=== PATIENT | female | born 1970 | race Caucasian/White ===

== ENCOUNTER → 2016-10-23 | Outpatient (CLI) | payer OTHER ==
[~2016-10-23] MED LIST: [UNRECOGNIZED DRUG - OTHER] OPB
== END | disposition home or self-care (01) ==
LOC: C.PAPS 16:57
PROVIDERS: ATTEND Obstetrics & Gynecology
DX: Z01.419 Encounter for gynecological examination (general) (routine) without abnormal findings (principal)

== ENCOUNTER → 2016-12-12 | Outpatient (CLI) | payer OTHER ==
--- NOTE | 2016-12-13 13:11 | MAMMOGRAPHY REPORT ---
ULTRASOUND OF BOTH BREASTS: 12/12/2016 CLINICAL HISTORY: Follow-up of probable complicated cysts in both breasts seen on prior whole breast screening ultrasound. COMPARISON: Comparison is made to exams dated: 06/13/2016 ultrasound, 05/26/2016 mammogram - [facility], 11/11/2014 mammogram, 09/19/2013 mammogram, 02/04/2013 mammogram, and 07/17/2012 mamm ogram - [facility]. FINDINGS: Real-time high-resolution sonographic evaluation was performed throughout each breast incl uding the retroareolar aspect of the breasts and each axilla. No suspicious adenopathy is identified in the right or left axilla. The breast parenchymal echotexture is heterogeneousdense. Within the left breast, numerous scattered cysts and cyst with internal septations are seen. An oval parallel circumscribed anechoic cyst with posterior acoustic enhancement is seen in the 12:00 left b reast, 2 cm from the nipple, measuring 7.0 x 5.3 x 5.8 mm. The previously observed hypoechoic solid versus cystic 6 mm mass in the 12:00 left breast is no longer identified, confirming a resolving cyst . 2 smaller hypoechoic cystic-appearing masses are seen in the 12:00 left breast, 1 cm from the nipp le, measuring 2.8 and 2.0 mm. A lobulated clover-shaped cyst with internal nonvascular septations pr eviously documented in the 12:00 periareolar left breast is currently reported in the 11:[address], 1 cm from the nipple. It currently measures 12.3 x 5.9 x 14.2 mm. Previous measurements were 14 .0 x 4.1 x 11.5 mm. Given slight differences in technique this has not significantly changed. 2 [address] circumscribed masses with posterior acoustic enhancement and internal layering debris are seen in the 1:30 left breast, 8 cm from the nipple, measuring 3.2 and 4.0 mm. In the 2:00 left breast, 8 cm from the nipple, there is a lobulated parallel predominantly anechoic to hypoechoic cystic-appearing mass measuring 4.5 x 2.2 x 2.9 mm. In the 2:00 left breast, 7 cm from the nipple, there is a cluster of small cysts versus cyst with multiple internal nonvascular septations measuring 5.0 x 5.0 x 5.5 m m. Minimal duct ectasia in the retroareolar left breast. Another cyst with multiple internal nonvas cular septation versus cyst cluster is identified in the 3:00 left breast, 6 cm from the nipple, jayda uring 5.2 x 2.8 x 4.3 mm. In the 6:00 periareolar left breast, there is an oval anechoic benign simp le cyst measuring 4.0 mm. In the 7:00 left breast, 2 cm from the nipple, there is an oval parallel c ircumscribed slightly hypoechoic solid versus cystic mass measuring 3.1 x 1.9 x 3.4 mm. A cyst with thin internal nonvascular septations is identified in the 9:00 left breast, 1 cm from the nipple, abigail suring 6.6 mm. Another nearly anechoic cystic appearing mass is seen in the 10:00 left breast, 3 cm from the nipple, measuring 3.9 x 3.5 x 4.0 mm. The mildly complicated cyst with internal septations in the 3:00 and 9:00 axes are unchanged in size. The solid versus cystic mass in the 7:00 axis is ne wly visualized. Within the right 12:00 breast, 6 cm from the nipple, there is a circumscribed parallel lobulated hypo echoic solid versus cystic mass measuring 5.7 x 3.9 x 5.8 mm. A round anechoic benign simple cyst is identified in the 12:00 right breast, 3 cm from the nipple, measuring 3.5 mm. There is an oval para llel circumscribed isoechoic to slightly hypoechoic solid versus cystic mass in the 1:00 right breast , 2 cm from the nipple, measuring 3.8 x 2.1 x 3.4 mm. A lobulated, predominantly anechoic cystic german earing mass with several thin internal nonvascular septations in the right 2:00 breast, 2 cm from the nipple, measures 4.6 x 2.7 x 4.3 mm. Another predominantly anechoic cyst with multiple internal non vascular septations in the 3:00 right breast, 4 cm from the nipple, measures 6.9 x 3.6 x 6.1 mm. A t iny rounded anechoic cyst is seen in the 7:00 right breast, 7 cm from the nipple, measuring 1.5 mm. A cyst with single thin internal nonvascular septation in the 7:00 right breast, 4 cm from the nipple , measures 4.1 x 2.6 x 6.9 mm. In the adjacent 7:00 right breast, 3 cm from the nipple, another cyst with single thin internal nonvascular septation measures 3.2 mm. Another lobulated anechoic benign simple cyst in the 9:00 right breast, 4 cm from the nipple, measures 4.6 x 6.2 mm. A cluster of mult iple abutting cysts in the 9:00 right breast, 3 cm from the nipple measures approximately 13 x 5 mm i n conglomerate. The mass in the 12:00 right breast, 6 cm from the nipple was not previously identifi ed. A previously observed probable complicated cyst in the 5:00 right breast is no longer seen. The cyst with thin internal septations currently seen in the 7:00 and 9:00 right breast were previously labeled 8:00 and 10:00, respectively and are unchanged. IMPRESSION: ACR-BI-RADS CATEGORY 3: PROBABLY BENIGN - FOLLOW-UP RECOMMENDED 1. There are multiple anechoic cysts scattered bilaterally, compatible with fibrocystic changes. So me of the cystic-appearing masses in both breasts have fluctuated and decreased in size, confirming b enignity. Multiple cysts with thin internal nonvascular septations in both breasts have not signific antly changed in size, also likely benign. However, there are newly visualized masses in the left 7: 00 axis, 2 cm from the nipple, and the right 12:00 axis, 6 cm from the nipple, for which repeat atten tion at follow-up is recommended. 2. Overall, a follow-up bilateral complete breast ultrasound is recommended to ensure longer stabili ty (30 minutes). Annual bilateral screening mammography will be due at that time. These results and recommendations were discussed with the patient at the time of the exam. She tenta tively schedule the follow-up appointment prior to leaving the department. Vernell Steven M.D. ay/:12/12/2016 22:30:34 Cardiovascular Operating Room Nurse: Kelli BEAN(Norma)(Joanna), [facility] letter sent: Follow Up Recommended 3 BI-RADS Code: ACR-BI-RADS Category 3: Probably Benign
== END | disposition home or self-care (01) ==
LOC: C.MAMM 08:01
PROVIDERS: ATTEND Family Medicine
DX: Z09 Encounter for follow-up examination after completed treatment for conditions other than malignant neoplasm (principal); N63 Unspecified lump in breast; N60.01 Solitary cyst of right breast; N60.02 Solitary cyst of left breast

== ENCOUNTER → 2017-06-14 | Outpatient (CLI) | payer OTHER ==
--- NOTE | 2017-06-15 13:38 | MAMMOGRAPHY REPORT ---
BILATERAL DIGITAL DIAGNOSTIC MAMMOGRAM TOMOSYNTHESIS WITH CAD AND TARGETED BILATERAL ULTRASOUND: 06/14 CLINICAL HISTORY: Short interval follow-up of bilateral cysts seen on whole breast ultrasound. Also due for routine annual mammography. The patient reports no new palpable lumps or other complaints. TECHNIQUE: Breast tomosynthesis in addition to standard 2D mammography was performed. Current study was also evaluated with a Computer Aided Detection (CAD) system. Bilateral CC and MLO 2-D and tomosy nthesis images and spot magnification left CC and ML views were obtained. COMPARISON: Comparison is made to exams dated: 12/12/2016 ultrasound, 06/13/2016 ultrasound, 05/26/2016 mammogram - [facility], 11/11/2014 mammogram, 09/19/2013 mammogram, and 02/04/2013 [facility]. BREAST COMPOSITION: The tissue of both breasts is heterogeneously dense, which may obscure small mas ses. FINDINGS: Spot magnification views were performed of the left breast, which show regional calcificat ions throughout the left upper outer quadrant which appear increased compared to prior exams. The ma jority of the calcifications demonstrate layering on the lateral view, consistent with benign milk of calcium. There is one small 5 mm group of calcifications within the left upper outer quadrant, whic h are predominantly punctate but do not clearly layer on the lateral view. The calcifications are p robably benign and likely represent milk of calcium/fibrocystic changes. The remainder of both breasts are stable mammographically compared to prior exams, without suspicious masses, calcifications, or areas of architectural distortion noted. Biopsy marker clips are again n oted bilaterally. Bilateral predominantly obscured masses are again noted, and correspond with cysts seen on prior ultrasound exams. Ultrasound was performed of both breasts including all 4 quadrants and subareolar regions. Again not ed are innumerable circumscribed anechoic and nearly anechoic masses seen bilaterally, some of which contain thin internal septations, consistent with cysts. The largest cyst measures approximately 1.6 cm in the left 11:30 periareolar breast. No suspicious solid masses are evident bilaterally. IMPRESSION: ACR-BI-RADS CATEGORY 3: PROBABLY BENIGN, TARGETED ULTRASOUND ACR-BI-RADS CATEGORY 3: PRO BABLY BENIGN 1. Increased prominence of calcifications in the left upper outer quadrant, which are probably benig n and likely represent milk of calcium/fibrocystic changes. Recommend follow-up diagnostic tomosynth esis mammograms of the left breast in 6 months to confirm stability on spot magnification views. 2. Multiple cysts seen bilaterally on ultrasound, with no sonographic evidence of malignancy in eith er breast. The patient has been verbally notified of the results. Approximately 10% of breast cancers are not detected with mammography. A negative mammographic report should not delay biopsy if a clinically suggestive mass is present. Cleo Hairston M.D. ah/:06/14/2017 16:00:51 Baker Apprentice: Annalise Wilder, [facility] letter sent: Follow Up Recommended 3 BI-RADS Code: ACR-BI-RADS Category 3: Probably Benign Ultrasound BI-RADS: ACR-BI-RADS Category 3: Pr obably Benign
== END | disposition home or self-care (01) ==
LOC: C.MAMM 07:55
PROVIDERS: ATTEND Obstetrics & Gynecology
DX: R92.1 Mammographic calcification found on diagnostic imaging of breast (principal); N60.01 Solitary cyst of right breast; N60.02 Solitary cyst of left breast

== ENCOUNTER → 2017-11-12 | Outpatient (CLI) | payer OTHER | END | disposition home or self-care (01) | LOC: C.PAPS 14:17 | PROVIDERS: ATTEND Obstetrics & Gynecology | DX: Z12.4 Encounter for screening for malignant neoplasm of cervix (principal) ==

== ENCOUNTER → 2018-02-18 | Outpatient (CLI) | payer OTHER | END | disposition home or self-care (01) | LOC: C.LABSPEC 17:34 | PROVIDERS: ATTEND Obstetrics & Gynecology | DX: R30.0 Dysuria (principal) ==

== ENCOUNTER 2019-11-24 06:25 | Inpatient (IN) ==
--- NOTE | 2019-11-13 09:26 | Anesthesiology Consultation ---
Date of Service November 13, 2019 Assessment & Plan (1) Encounter for pre-operative examination: test AM DOS Chart Review Chart Review: Acceptable Risk for Surgery and Patient NOT seen in Pre Admission Testing History Surgery Operation Date: 11/24/19 07:30 Proposed Procedures p Total Abdominal Hysterectomy, Possible Removal of One or Both Ovaries - Chantal Castillo, Height/Weight Height: 5 ft 9 in Weight: 77.111 kg Allergies Allergy/AdvReac Type Severity Reaction Status Date / Time iodine Allergy Severe Swelling Verified 11/12/19 10:44 of Tongue, difficult swallowing kiwi Allergy Severe throat Verified 11/12/19 10:44 itching/throat swelling shellfish derived Allergy Severe throat Verified 11/12/19 10:44 itching/throat swelling Medications Home Medications Medication Instructions Recorded Confirmed Last Taken azelastine 137 mcg (0.1 %) nasal 2 sprays INTNAS QAM PRN 01/06/19 11/12/19 Unknown spray aerosol latanoprost 0.005 % eye drops 1 drops OP QPM 01/06/19 11/12/19 08/30/19 multivitamin 1 tab PO QAM 08/26/19 11/12/19 Unknown Past Medical History Medical History Anemia Glaucoma Herniated cervical disc Menorrhagia Osteoarthritis Past Family History Family History Aunt Family hx of colon cancer Grandfather Hearing loss Cardiac disorder Grandmother Stroke Uncle Family hx colonic polyps Other No family history of adverse response to anesthesia Past Surgical History Surgical History H/O myomectomy H/O ovarian cystectomy History of colonoscopy with polypectomy History of left breast biopsy x2--benign History of right breast biopsy x2--benign History of wisdom tooth extraction Social History Smoking Status: Never smoker Do You Dip or Chew Tobacco: No Hx Alcohol Use: Yes Alcohol type: hard liquor alcohol intake frequency: holidays/special occasions only Hx Substance Use: No substance use type: does not use Testing Laboratory Results 11/12/19 WBC: 5.18 H/H: 13.1/39.7 PLATELETS: 274 SODIUM: 132 POTASSIUM: 3.9 CHLORIDE: 101 CO2: 28 BUN: 2 CREATININE: 0.81 GLUCOSE: 95 Electrocardiogram Date: 11/12/19 Findings: + SB @ (58bpm) Chest X-Ray Date: 11/12/19 Findings: + NAD
[~2019-11-24 06:25] MED LIST changes: +CEFAZOLIN 2000MG 2,000 MG/15 ML SYR IV SCH; +LACTATED RINGER'S 1,000 ML IV SCH; +LR 15ML/HR IV SCH; -[UNRECOGNIZED DRUG - OTHER] OPB
[2019-11-24 07:56] LABS: Pregnancy Test, Serum Negative (Negative)
[2019-11-24] MEDS ORDERED: MIDAZOLAM HCL 1 MG/ML 2ML VIAL ONE (08:02)
[2019-11-24] MEDS ORDERED: ROCURONIUM BROMIDE 10 MG/ML 5 ML VIAL ONE (08:02)
[2019-11-24] MEDS ORDERED: LIDOCAINE HCL 2% 2 ML VIAL/AMP(20MG/ML) INFIL ONE (08:02)
[2019-11-24] MEDS ORDERED: PROPOFOL IV EMULSION 10 MG/ML 20 ML VIAL IV ONE (08:02)
[2019-11-24] MEDS ORDERED: ONDANSETRON INJ 2 MG/ML 2 ML VIAL ONE (08:02)
[2019-11-24] MEDS ORDERED: fentaNYL citrate 100 MCG/2 ML VIAL ONE ×2 (08:02→10:23)
[2019-11-24] MEDS ORDERED: PROMETHAZINE HCL 12.5 MG in SODIUM CHLORIDE 0.9% 50 ML IV PRN (08:15)
[2019-11-24] MEDS ORDERED: ATROPINE SULFATE 0.1 MG/ML 10ML SYR IV PRN (08:15)
[2019-11-24] MEDS ORDERED: ePHEDrine sulfate 50 MG/ML AMP IV PRN (08:15)
[2019-11-24] MEDS ORDERED: ONDANSETRON INJ 2 MG/ML 2 ML VIAL IV PRN (08:15)
[2019-11-24] MEDS ORDERED: HYDROmorphone INJ 1 MG/ML SYRINGE IV PRN (08:15)
--- NOTE | 2019-11-24 09:30 | History & Physical Bridge Note ---
Date of Service November 24, 2019 History & Physical Bridge Note I have examined the patient, reviewed the History & Physical and in the interval since the performance of the History & Physical I have noted the following changes of clinical significance: no changes noted
[2019-11-24] MEDS ORDERED: DEXAMETHASONE SOD INJ 4 MG/ML VIAL ONE (10:11)
[2019-11-24] MEDS ORDERED: GELATIN SPONGE SZ 100 ONE (11:42)
[2019-11-24] MEDS ORDERED: GLYCOPYRROLATE 0.2 MG/ML VIAL ONE (12:05)
[2019-11-24] MEDS ORDERED: NEOSTIGMINE METHYLSULFATE 5 MG/5 ML SYR ONE (12:05)
--- NOTE | 2019-11-24 12:19 | Operative Report ---
PG Post Operative Report Pre & Post Diagnosis Operation Date: 11/24/19 09:00 Pre-Op Diagnosis: Fibroid Uterus, Pelvic Pain, Abnormal Menses Post-Op Diagnosis: Fibroid Uterus, Pelvic Pain, Abnormal Menses I identified the patient and participated in the time-out.: Yes Procedure Operation Date: 11/24/19 09:00 Actual Procedures p Total Abdominal Hysterectomy, Left Salpingectomy, Right Oopherectomy(Not Applicable) - Chantal Castillo DO Surgeon Chantal Castillo DO Refractory Technician Tania Diggs MD, Rebeka Henry MD PGY1 Estimated Blood Loss 150 Findings Consistent with Post-Op Diagnosis Enlarged fibroid uterus, normal appearing bilateral ovaries/tubes. Specimens uterus, left tube, right ovary Drains maddox, clear yellow Anesthesia Type General Complications none Disposition Accompanied Patient To Recovery: Yes Disposition: Recovery Room Indications 49yo with worsening pelvic pain and large fibroid uterus, abnormal menses. Abdo osvaldo approach due to size of uterus. Description of Procedure The patient was seen in the preoperative holding area, where risks benefits and alternatives to surgery reviewed. She elected to proceed with the case. She had previously signed informed consent under no duress in the office. Questions were answered. She was taken to the operating room, where general anesthesia was administered. She was then prepared and draped in the usual sterile fashion in the supine position. Timeout was confirmed. 2 g of Ancef was given preoperatively. A Pfannenstiel skin incision was made through her prior incision with a scalpel. This was carried through to the underlying layer of fascia. This was nicked at midline, and extended bilaterally sharply. The superior aspect of the fascial incision was grasped with Winchester clamps x2, elevated off the underlying rectus abdominis muscles, and dissected bluntly and sharply. In similar fashion, the inferior aspect of the fascial incision was dissected. The rectus abdominis muscles were at midline, and the peritoneum was entered bluntly digitally. This incision was extended. A self-retaining O'Rich-O'Chung retractor was placed in the cavity, and one damp lap sponge was used to pack the bowel. The uterus was delivered through the incision, and the right round ligament was suture-ligated and transected. The anterior leaf of the broad ligament was dissected off of the anterior aspect of the uterus, and this came down nicely. The posterior broad leaf ligament was also dissected and the uterine vessels were skeletonized. The right utero- ovarian ligament was then grasped between 2 Candy clamps, and transected. A free tie was used of 0 Vicryl in the pedicle, and a second suture was used to suture ligate this pedicle. In similar fashion, the left round ligament and left utero-ovarian ligaments were transected and ligated. The left fallopian tube was transected from its mesosalpinx with Bovie cautery and sent to pathology. The bladder was dissected off of the anterior aspect of the uterus. Bilateral uterine vessels were clamped with a curved Melquiades and transected and suture ligated. Subsequent pedicles were taken down on each side until the cervix. A scalpel was used to enter the anterior aspect of the cervix, cutting through to the anterior vagina. The cervix and uterus were then amputated from the vaginal cuff using Joanne scissors. The vaginal cuff was then reapproximated in a running lock stitch with 1 Vicryl. The vaginal apices were incorporated into the suture line. The pedicles appeared hemostatic, however there was some bleeding at the right utero-ovarian ligament pedicle. This was unable to be adequately ligated to save the ovary. Therefore, decision was made to suture ligate the right infundibulopelvic ligament. This was tied off with a free tie, and then a second tie of 0 Vicryl was used to suture ligate. The ovary was sent to pathology. A portion of the right fallopian tube was taken down with the uterus, and could not be easily dissected from the right pelvic sidewall, so it was left alone in place. Bilateral ureters were palpated in the pelvic sidewall. All pedicles and the vaginal cuff appeared hemostatic after multiple rounds of irrigation. The self-retaining retractor retractor and lap sponges were removed from the pelvis. The fascial incision was reapproximated using 0 Vicryl in a running stitch. The subcutaneous tissue was irrigated and reapproximated using 2-0 plain gut in a running stitch. The skin was reapproximated using 4-0 Vicryl in a running subcuticular stitch. Steri-Strips and a bandage were applied. Sponge, instrument, needle counts were correct x2 at the conclusion of the case. The patient tolerated the procedure well and will be taken to the recovery area in stable and good condition after extubation. I attest to the content of the Intraoperative Record and any orders documented therein. Any exceptions are noted below.
[2019-11-24] MEDS ORDERED: bisacodyL 10 MG SUPP PR PRN (12:27)
[2019-11-24] MEDS ORDERED: PROMETHAZINE HCL 25 MG in SODIUM CHLORIDE 0.9% 50 ML IV PRN (12:27)
[2019-11-24] MEDS ORDERED: IBUPROFEN 600 MG TAB PO PRN (12:27)
[2019-11-24] MEDS ORDERED: MAGNESIUM HYDROXIDE SUSP 30 ML UDC PO PRN (12:27)
[2019-11-24] MEDS ORDERED: NALOXONE HCL 0.4 MG/1 ML VIAL/CARP IV PRN (12:27)
[2019-11-24] MEDS ORDERED: MoRPHine Bolus from PCA IV STA ×2 (12:27→14:44)
[2019-11-24] MEDS ORDERED: MORPHINE SULFATE PCA 30 MG/30 ML IV PRN (12:27)
[2019-11-24] MEDS ORDERED: SODIUM CHLORIDE 0.9% 1000ML 1,000 ML IV SCH (12:30)
[2019-11-24] MEDS: fentaNYL citrate 100 MCG/2 ML VIAL IV PRN ×2 (12:50→12:55)
--- NOTE | 2019-11-24 13:14 | Anesthesiology Progress Note ---
Date of Service November 24, 2019 Anesthesia Post Procedure Vital Signs Vital Signs: Temp Pulse Pulse Resp BP BP Pulse Ox 11/24/19 13:05 36.6 C 56 L 16 127/85 100 11/24/19 12:55 63 16 148/87 H 100 11/24/19 12:46 36.7 C 71 16 138/82 100 11/24/19 07:02 36.8 C 68 18 143/90 H 99 Pain Intensity Abdomen: Pain Intensity: 7 Transfer of Care Handoff Completed per policy Notes Mental Status: alert / awake / arousable and participated in evaluation Patient Amnestic to Procedure: Yes Nausea / Vomiting: adequately controlled Pain: improving with treatment Airway Patency, RR, SpO2: stable & adequate BP & HR: stable & adequate Hydration State: stable & adequate Anesthetic Complications: no major complications apparent and Pt Satisfied with anesthetic care
[2019-11-24] MEDS: KETOROLAC 30 MG/ML VIAL IV PRN ×2 (14:57→21:05)
[2019-11-24] MEDS: ONDANSETRON INJ 2 MG/ML 2 ML VIAL IV PRN (20:45)
[2019-11-24] MEDS: LACTATED RINGER'S 1,000 ML IV SCH (21:31)
[2019-11-24] MEDS: DOCUSATE SODIUM 100 MG CAP PO SCH (21:36)
[2019-11-25] MEDS: LACTATED RINGER'S 1,000 ML IV SCH ×2 (05:00→08:28)
[2019-11-25] MEDS ORDERED: LACTATED RINGER'S 500 ML IV ONE (05:42)
[2019-11-25] MEDS: ONDANSETRON INJ 2 MG/ML 2 ML VIAL IV PRN (05:49)
[2019-11-25 06:25] LABS: Basophils # (auto) 0.01 K/uL (0-0.2); Basophils % (auto) 0.1 %; Hematocrit (blood only) 25.9 % (37-47); Hemoglobin 8.5 g/dL (12.0-16.0); Immature Granulocytes # (auto) 0.02 K/uL (0.00-0.02); Immature Granulocytes % (auto) 0.2 %; Lymphocytes # (auto) 1.77 K/uL (1.2-3.4); Lymphocytes % (auto) 15.6 %; Mean Corpuscular Hemoglobin 30.1 pg (25-34); Mean Corpuscular Hgb Conc 32.8 g/dL (32-36); Mean Corpuscular Volume 91.8 fL (80-100); Mean Platelet Volume 10.7 fL (7.4-10.4); Monocytes # (auto) 1.36 K/uL (0.11-0.59); Neutrophils # (auto) 8.21 K/uL (1.4-6.5); Neutrophils % (auto) 72.1 %; Platelet Count 216 K/uL (130-400); RDW Coefficient of Variation 13.6 % (11.5-14.5); RDW Standard Deviation 45.3 fL (36.4-46.3); Red Blood Count 2.82 M/uL (4.2-5.4); White Blood Count 11.37 K/uL (4.8-10.8)
[2019-11-25 07:03] LABS: BUN Creatinine Ratio 8.8 (10-20); Calcium 8.6 mg/dl (8.5-10.1); Creatinine Clr Calc Pharmacy 37.6 ml/min; Est GFR (African American) 35.9; Potassium 4.8 mmol/L (3.5-5.1)
--- NOTE | 2019-11-25 08:17 | Gynecologic Progress Note ---
Date of Service November 25, 2019 Assessment & Plan (1) S/P hysterectomy with oophorectomy: See above for plan. Repeat H/H at noon. IV fluids bolus, monitor urine output. Recheck CR/BUN tomorrow. Hold toradol. Admission and Anticipated Discharge Date Admission Date: November 24, 2019 Subjective POD#1 s/p ITZ/LS/RSO. Pain ok, used 4mg morphine overnight with CRANE OPERATOR. Urine output overnight was low, she rec'd IV bolus and then increased to 30cc hourly over the past 2 hours. I think this is likely due to dehydration, as her UO increased immediately with IV fluids. Will give another 250cc bolus now, and continue to monitor UO via maddox during the day today. Recheck H/H at noon. Some nausea and vomiting at 700cc at 5am, hypoactive bowel sounds. Will treat for nausea now, then advance diet later today. Will start to dangle legs, ambulate as tolerated later today, until then wear SCDs. Physical Exam Physical Exam: Gen: AAOx3 NAD CV: RRR L: CTAB Abd: soft, mild tenderness. incision CDI Ext: no edema. No calf tenderness. SCDs in place. Urine maddox: yellow, concentrated. Results & Data ([facility]) Vital Signs (Past 12 Hours) Vital Signs Temp Pulse Resp BP Pulse Ox 11/25/19 03:10 37.4 C 88 10 L 90/61 L 95 11/24/19 23:30 37.0 C 94 H 12 90/62 L 97
[2019-11-25] MEDS ORDERED: LACTATED RINGER'S 250 ML IV ONE (08:20)
[2019-11-25] MEDS: DOCUSATE SODIUM 100 MG CAP PO SCH ×2 (08:27→21:07)
[2019-11-25] MEDS ORDERED: SODIUM CHLORIDE 0.9% 250 ML IV SCH (08:30)
[2019-11-25 10:29] LABS: Hematocrit (blood only) 23.8 % (37-47); Hemoglobin 7.7 g/dL (12.0-16.0)
--- NOTE | 2019-11-25 10:48 | XRay Report ---
KUB CLINICAL HISTORY: no urine output after surgery COMPARISON STUDY: None. FINDINGS: A moderate amount stool within the colon is noted. There is no evidence for a bowel obstruc tion. Pelvic calcifications favor phleboliths. No renal calculi are identified. Visualized skeletal s tructures are unremarkable. Suspected extraluminal gas within the pelvis is noted. IMPRESSION: 1. No urinary calculi identified. Pelvic calcifications favor phleboliths. 2. No evidence for a bowel obstruction. Moderate amount stool within the colon. 3. Suspected extraluminal gas within pelvis which is likely postsurgical. ACT 112: Negative or not required by law. Electronically signed by: Douglas Kim M.D. 11/25/2019 10:46 AM
[2019-11-25 10:54] LABS: BUN Creatinine Ratio 10.3 (10-20); Est GFR (African American) 36.4; Est GFR (Non-African American) 31.4
--- NOTE | 2019-11-25 11:14 | CT Scan Report ---
CT abd pelvis wo con CLINICAL HISTORY: 49 years-old Female presenting with postop hysterectomy, r/o active bleed, r/o uret er injury. TECHNIQUE: Multidetector CT of the abdomen and pelvis was performed without the use of intravenous co ntrast. IV contrast: None. One or more dose lowering techniques were used consistent with the princip les of ALARA (as low as reasonably achievable), including automatic exposure control, mA or kV adjust ment to individual patient size, and/or use of iterative reconstruction. COMPARISON: Pelvic ultrasound from 11/12/2019. CT DOSE (mGy.cm): The estimated cumulative dose is 490.92 mGy.cm. FINDINGS: Plan Nurse topogram: Unremarkable. Lung bases: Intraventricular blood pole left stents in adjacent myocardium suggesting anemia. Trace b ilateral pleural effusions. Bibasilar dependent consolidation, right greater than left, likely extens canelo atelectasis. Liver: Normal morphology. Normal density. Biliary: No gross biliary ductal dilatation allowing for noncontrast technique. Layering hyperdensity may represent biliary sludge. Pancreas: Normal noncontrast appearance. Spleen: Normal noncontrast appearance. Adrenal glands: Normal noncontrast appearance. Kidneys and ureters: Normal noncontrast appearance. No nephrolithiasis. No hydronephrosis. Normal ure ters. Bladder: Randall catheter decompresses the urinary bladder. Pelvic organs: Status post hysterectomy. Low-density sheetlike foreign body in the hysterectomy bed ( series 3 image 380). Surrounding hyperdense fluid cyst in with pneumoperitoneum. Bowel: Mild stool burden throughout normal caliber colon. No bowel obstruction. Stomach mildly disten ded with fluid. Peritoneal cavity: Moderate to large volume hemoperitoneum in the right lower quadrant and pelvis. Sm aller volume lower density ascites. Extensive pneumoperitoneum and upper abdomen. Retroperitoneal gas noted bilaterally though more so on the right. Extensive abdominal wall gas as detail below. Lymph nodes: No gross lymphadenopathy allowing for noncontrast technique. Vasculature: Grossly normal caliber of the abdominal aorta. Infiltrative changes along the extraperit stack pelvic sidewalls degrades evaluation of pelvic vasculature. Abdominal wall: Extensive postoperative changes of the lower abdominal wall with soft tissue emphysem a and superficial infiltrative change. Pfannenstiel incision noted. There is abnormal thickening of t he left abdominal wall musculature, which is soft tissue density suggesting an intramuscular or inter fascial hematoma along the left midabdomen extending into the left upper quadrant. This also extends along the left inguinal region towards the left labia. Lesser changes on the right abdominal wall. Musculoskeletal: There are erosive changes of the facet on the right at L4-5 with subjacent cystic ch amina in the lamina of L4. IMPRESSION: 1. Moderate to large volume hemoperitoneum and left abdominal wall hematoma. Abdominal wall hematoma and edema extending from the left upper quadrant to the left vulvar region. Active hemorrhage is not excluded and would be best assessed with a multiphase contrast-enhanced CT. Close clinical and imagi ng follow-up recommended. 2. Sheetlike low-density foreign body in the hysterectomy bed may be intentional and for hemostatic purposes. Correlate with operative report. 3. Pneumoperitoneum is presumably postoperative. 4. Limited evaluation for ureteral injury in the absence of excreted contrast in the urinary collect ing system. 5. Extensive bibasilar atelectasis. 6. Erosive changes of the right L4-5 facet are presumably degenerative in etiology. The report will be called/faxed according to standard departmental protocol for a critical finding. ACT 112: Negative or not required by law. Electronically signed by: Mitul Harper M.D. 11/25/2019 11:12 AM
--- NOTE | 2019-11-25 11:27 | Gynecologic Progress Note ---
Date of Service November 25, 2019 Assessment & Plan Admission and Anticipated Discharge Date Admission Date: November 24, 2019 Subjective H/H dropped from 8.5 to 7.5, vitals remain stable. CT scan appears to be abdominal wall hematoma, from discussion with radiologist, appears to be between abdominal wall muscles and fascia. He recommends CT w/contrast to r/o active bleed. Discussed her elevated Cr, given that it is below 2.[address] will be to r/o active bleed and make decision to return to OR, will perform study. Results & Data ([facility]) Vital Signs (Past 12 Hours) Vital Signs Temp Pulse Resp BP Pulse Ox 11/25/19 08:00 37 C 82 18 104/69 97 11/25/19 03:10 37.4 C 88 10 L 90/61 L 95 11/24/19 23:30 37.0 C 94 H 12 90/62 L 97
[2019-11-25] MEDS ORDERED: SODIUM CHLORIDE 0.9% 250 ML IV PRN ×2 (11:34→12:13)
[2019-11-25] MEDS: ACETAMINOPHEN 500 MG TAB PO PRN ×2 (13:03→19:12)
--- NOTE | 2019-11-25 13:03 | Gynecologic Progress Note ---
Date of Service November 25, 2019 Assessment & Plan Admission and Anticipated Discharge Date Admission Date: November 24, 2019 Subjective Patient is awake in bed, states she is starting to feel better. Vitals are stable. Urine output is increasing, and urine is less concentrated. I reviewed results of CT with patient and recommendations for abdominal binder and sand bag against hematoma. Also signed consent for blood transfusion. She was agreeable. Questions answered. I also discussed by phone with patient's godmother, Rosa. (She is in [facility] [phone]) At this time, we are hopeful that this will successfully treat the hematoma and patient will be able to avoid return to OR, however she is aware that if we continues to drop hgb, then would need to take her back to OR. Results & Data ([facility]) Vital Signs (Past 12 Hours) Vital Signs Temp Pulse Pulse Resp BP BP Pulse Ox 11/25/19 12:30 37.4 C 89 20 114/76 99 11/25/19 12:00 36.5 C 76 16 109/71 99 11/25/19 11:15 36.5 C 81 16 110/71 100 11/25/19 08:00 37 C 82 18 104/69 97 11/25/19 03:10 37.4 C 88 10 L 90/61 L 95
[2019-11-25] MEDS ORDERED: OXYCODONE HCL IR 5 MG TAB (IMMEDIATE RELEASE) PO PRN (15:41)
[2019-11-25 19:31] LABS: Hematocrit (blood only) 29.1 % (37-47); Hemoglobin 9.5 g/dL (12.0-16.0)
[2019-11-25] MEDS: SIMETHICONE 80 MG CHEW PO PRN (20:32)
--- NOTE | 2019-11-25 22:01 | Gynecologic Progress Note ---
Date of Service November 25, 2019 Assessment & Plan Admission and Anticipated Discharge Date Admission Date: November 24, 2019 Subjective Late note. I made rounds at 6:45 this evening. Patient awake, feeling much better.Tolerating PO liquids and crackers. Desiring tylenol for pain control. She has just completed 2u PRBC. No vaginal bleeding. Urine output clear and adequate. Abdomen soft. Incision CDI. SCDs in place. Vitals stable throughout the day. update: Hgb 9.5. will recheck q6h. Ok to remove maddox, will start to carefully ambulate. PO fluids and advance diet as tolerated. Results & Data ([facility]) Vital Signs (Past 12 Hours) Vital Signs Temp Pulse Pulse Pulse Resp BP BP 11/25/19 20:05 37.6 C H 116 H 18 111/67 11/25/19 18:10 37.6 C H 100 H 100 H 18 118/74 118/74 11/25/19 18:00 37.4 C 102 H 18 117/74 11/25/19 17:05 37.9 C H 90 20 108/68 11/25/19 16:35 37.4 C 96 H 18 114/70 11/25/19 16:05 37.5 C 97 H 20 109/70 11/25/19 15:50 37.3 C 80 73 18 110/72 110/72 11/25/19 15:33 37.1 C 81 18 104/68 11/25/19 15:05 37.2 C 88 18 107/71 11/25/19 14:30 37.1 C 84 18 102/67 11/25/19 14:00 36.8 C 99 H 18 117/69 11/25/19 13:30 37.1 C 86 16 108/72 11/25/19 13:15 37.3 C 86 18 121/81 11/25/19 12:58 37.8 C H 88 16 119/81 11/25/19 12:30 37.4 C 89 20 114/76 11/25/19 12:00 36.5 C 76 16 109/71 11/25/19 11:15 36.5 C 81 16 110/71 Pulse Ox 11/25/19 20:05 97 11/25/19 18:10 97 11/25/19 18:00 96 11/25/19 17:05 97 11/25/19 16:35 96 11/25/19 16:05 96 11/25/19 15:50 97 11/25/19 15:33 98 11/25/19 15:05 99 11/25/19 14:30 98 11/25/19 14:00 98 11/25/19 13:30 98 11/25/19 13:15 98 11/25/19 12:58 98 11/25/19 12:30 99 11/25/19 12:00 99 11/25/19 11:15 100
[2019-11-25] MEDS: HYDROCODONE/ACETAMOPHEN 5/325MG TAB PO PRN (22:09)
[2019-11-25 23:58] LABS: Hematocrit (blood only) 27.9 % (37-47); Hemoglobin 9.5 g/dL (12.0-16.0)
[2019-11-26] MEDS: HYDROCODONE/ACETAMOPHEN 5/325MG TAB PO PRN ×3 (01:52→23:53)
[2019-11-26] MEDS: SIMETHICONE 80 MG CHEW PO PRN ×3 (01:56→15:28)
[2019-11-26 06:51] LABS: Basophils # (auto) 0.03 K/uL (0-0.2); Basophils % (auto) 0.3 %; Eosinophils # (auto) 0.03 K/uL (0-0.5); Eosinophils % (auto) 0.3 %; Hemoglobin 8.9 g/dL (12.0-16.0); Immature Granulocytes # (auto) 0.02 K/uL (0.00-0.02); Immature Granulocytes % (auto) 0.2 %; Lymphocytes # (auto) 2.46 K/uL (1.2-3.4); Lymphocytes % (auto) 27.4 %; Mean Corpuscular Hemoglobin 30.6 pg (25-34); Mean Corpuscular Volume 92.8 fL (80-100); Mean Platelet Volume 10.4 fL (7.4-10.4); Monocytes # (auto) 0.96 K/uL (0.11-0.59); Monocytes % (auto) 10.7 %; Neutrophils # (auto) 5.49 K/uL (1.4-6.5); Neutrophils % (auto) 61.1 %; Platelet Count 172 K/uL (130-400); RDW Coefficient of Variation 14.1 % (11.5-14.5); RDW Standard Deviation 48.4 fL (36.4-46.3); Red Blood Count 2.91 M/uL (4.2-5.4); White Blood Count 8.99 K/uL (4.8-10.8)
[2019-11-26 07:33] LABS: Calcium 8.3 mg/dl (8.5-10.1); Creatinine Clr Calc Pharmacy 66.2 ml/min; Est GFR (African American) 71.2; Est GFR (Non-African American) 61.4; Potassium 4.2 mmol/L (3.5-5.1)
[2019-11-26] MEDS: DOCUSATE SODIUM 100 MG CAP PO SCH ×2 (08:25→21:08)
--- NOTE | 2019-11-26 08:25 | Gynecologic Progress Note ---
Date of Service November 26, 2019 Assessment & Plan (1) S/P hysterectomy with oophorectomy: POD#2 doing well. Much improved over yesterday. Hgb slight drop, however suspect this is equilibrating. Vitals stable. Creatinine improved. Will plan for increased ambulation today, continue advancing diet. Will check Hgb tomorrow AM, unless clinical picture indicates before. Continue abdominal binder. Anticipate DC home tomorrow. (2) Abdominal wall hematoma: Admission and Anticipated Discharge Date Admission Date: November 24, 2019 Subjective POD#2 doing much better. Ambulating in the halls. Urinating on her own. Not yet passing gas. Tolerating PO liquids and now breakfast has arrived, she is hungry. Pain controlled - taking norco. Physical Exam Physical Exam: Gen: AAOx3 NAD, looks much better than yesterday CV: RRR L: CTAB Abd: soft, appropriately postop tender, +bowel sounds. Left flank is slightly tender, less-so than yesterday. No obvious swelling. Skin is slightly darker on that side. Incision CDI. Ext: SCDs on : no vaginal bleeding Results & Data ([facility]) Vital Signs (Past 12 Hours) Vital Signs Temp Pulse Resp BP Pulse Ox 11/26/19 04:20 37.2 C 92 H 16 107/62 95 11/26/19 01:45 37.5 C 11/25/19 23:55 37.7 C H 119 H 16 127/77 97
[2019-11-26] MEDS: ONDANSETRON INJ 2 MG/ML 2 ML VIAL IV PRN (18:09)
[2019-11-26 18:39] LABS: Hematocrit (blood only) 26.9 % (37-47); Hemoglobin 8.7 g/dL (12.0-16.0)
[2019-11-27 06:31] LABS: Hematocrit (blood only) 24.7 % (37-47)
--- NOTE | 2019-11-27 07:58 | Gynecologic Progress Note ---
Date of Service November 27, 2019 Assessment & Plan (1) S/P hysterectomy with oophorectomy: POD#3 doing well, ready for discharge home. Discussed that she should continue use of the abdominal binder. Reviewed discharge instructions - if any problems or concerns, would need to be seen immediately. Rx for ibuprofen and Candia. Discussed lifting restrictions - no greater than 15 lbs, needs to have help with her upcoming move out of [place]. Will follow up in office in 2 weeks. (2) Abdominal wall hematoma: Admission and Anticipated Discharge Date Admission Date: November 24, 2019 Subjective POD#3. Doing well. Ambulating well in halls. Did have an episode of dizziness while ambulating last night, this has resolved and she has ambulated since. Tolerating PO - did feel some nausea without vomiting after dinner last night. Has done well with apple sauce and crackers and is drinking a lot of PO fluids. Will eat breakfast this morning. Scant vaginal bleeding. Pain controlled with Candia. Feels like she is ready to go home. Review of Systems Review of Systems: All systems reviewed & are unremarkable except as noted in HPI & below Physical Exam Physical Exam: Gen: AAOx3 NAD CV: RRR L: CTAB Abd: soft, NTTP. Nondistended. Incision CDI. Abdominal binder still in place, removed for exam and then replaced. Small amount of appreciable swelling on left flank, seems similar to prior days. No obvious bruising on skin. Not tender. Ext: no edema, no calf tenderness : no bleeding Results & Data ([facility]) Vital Signs (Past 12 Hours) Vital Signs Temp Pulse Resp BP 11/26/19 23:45 37.3 C 98 H 14 114/73 11/26/19 20:00 37.3 C 98 H 18 114/73
[2019-11-27] MEDS: DOCUSATE SODIUM 100 MG CAP PO SCH (08:26)
[2019-11-27] MEDS: SIMETHICONE 80 MG CHEW PO PRN (08:26)
[2019-11-27] MEDS: HYDROCODONE/ACETAMOPHEN 5/325MG TAB PO PRN (08:26)
--- NOTE | 2019-12-02 10:54 | Coding Query ---
Your help is needed for correct coding of this account; please clarify if the patients Abdominal Wall Hematoma was: ( ) expected out of the surgery (X - this is a known complication that can occur after abdominal surgery, it was not expected in this case ) unexpected complication from the surgery ( )other please specify Thank you Ayala DANIELS
== END 2019-11-27 10:00 | disposition home or self-care (01) | DRG 742 ==
LOC: ASU 06:25 → 4S2 12:27

== ENCOUNTER 2019-12-01 15:09 | Observation (INO) ==
[2019-12-01] MEDS ORDERED: SODIUM CHLORIDE 0.9% 1000ML 1,000 ML IV ONE (15:56)
[2019-12-01] MEDS ORDERED: ACETAMINOPHEN 1,000 MG/100 ML VIAL IV STA (15:56)
--- NOTE | 2019-12-01 16:07 | Emergency Department Note ---
History of Present Illness General Chief complaint: Wound Recheck Stated complaint: WOUND RECHECK, REF'D BY DR SCHMITZ Time Seen by Provider: 12/01/19 15:41 History of Present Illness Provider complaint: Weakness shortness of breath Onset (ago): day(s) 2 Maximum Pain Intensity: 3 49-year-old female presents emergency department with weakness and shortness of breath. She reports her symptoms well for last 2 days. Patient reports she rec ently had a hysterectomy and there were complications in the hysterectomy. She states that a "blood clot was burst" and led to a hematoma formation in the abdomen. She reports mild abdominal pain she also reports some mild chest pain. She denies any nausea vomiting diarrhea or hematuria. Patient states she spoke with her AGENCY SALES DEVELOPMENT ASSOCIATE Dr. Carpenter who advised her to come to the emergency department. Home Medications Home Medications Medication Instructions Recorded Confirmed Type azelastine 137 mcg (0.1 %) nasal 2 sprays INTNAS QAM PRN 01/06/19 12/01/19 History spray aerosol latanoprost 0.005 % eye drops 1 drops OP QPM 01/06/19 12/01/19 History multivitamin 1 tab PO QAM 08/26/19 12/01/19 History hydrocodone-acetaminophen [[place]] 1 tab PO Q6H PRN #20 tab 11/27/19 12/01/19 Rx ibuprofen 600 mg PO Q6H PRN #30 tab 11/27/19 12/01/19 Rx ondansetron HCl 4 mg tablet 4 mg PO Q6H PRN #20 tab 11/29/19 12/01/19 Rx Allergies Allergy/AdvReac Type Severity Reaction Status Date / Time iodine Allergy Severe Swelling Verified 12/01/19 15:56 of Tongue, difficult swallowing kiwi Allergy Severe throat Verified 12/01/19 15:56 itching/throat swelling shellfish derived Allergy Severe throat Verified 12/01/19 15:56 itching/throat swelling Past Med/Surg History Medical History Anemia Glaucoma Herniated cervical disc Menorrhagia Osteoarthritis Surgical History H/O myomectomy H/O ovarian cystectomy History of colonoscopy with polypectomy History of left breast biopsy x2--benign History of right breast biopsy x2--benign History of wisdom tooth extraction Family History Aunt Family hx of colon cancer Grandfather Hearing loss Cardiac disorder Grandmother Stroke Uncle Family hx colonic polyps Other No family history of adverse response to anesthesia Social History Preferred Language: [place]amb[place] Communication Ability: Effective Fabrics And Material Cutter Required: No Beliefs That Will Affect Care: None Current Living Situation: Alone Feels Safe at Home: Yes Smoking Status: Never smoker Second Hand Exposure: No ; Hx Alcohol Use: Yes Alcohol type: hard liquor Hx Substance Use: No Review of Systems A total of 10 systems reviewed and were otherwise negative Physical Exam Vital Signs Vital Signs - 24 hr 12/01/19 15:13 12/01/19 15:40 12/01/19 16:00 Temperature 37.6 C H 37.5 C Temperature Source Oral Pulse Rate 95 H 88 Pulse Rate from SpO2 Sensor 88 Respiratory Rate 16 19 20 Respiratory Effort / Characteristics Non-Labored Spontaneous Respiratory Depth Normal Respiratory Pattern Regular Blood Pressure 149/91 H 154/97 H 148/93 H Blood Pressure Mean 110 112 108 Pulse Oximetry 100 99 Oxygen Delivery Method Room Air Sepsis Recent Fever Within 48 Hours No Sepsis New/Unexplained Change in Mental Status No Sepsis Action Taken by Nursing No Action Required 12/01/19 16:30 12/01/19 17:11 12/01/19 17:30 Temperature Temperature Source Pulse Rate 80 84 Pulse Rate from SpO2 Sensor Respiratory Rate 20 18 19 Respiratory Effort / Characteristics Respiratory Depth Respiratory Pattern Blood Pressure 156/92 H 145/97 H 147/97 H Blood Pressure Mean 111 114 116 Pulse Oximetry 98 Oxygen Delivery Method Sepsis Recent Fever Within 48 Hours Sepsis New/Unexplained Change in Mental Status Sepsis Action Taken by Nursing 12/01/19 18:00 Temperature Temperature Source Pulse Rate 89 Pulse Rate from SpO2 Sensor Respiratory Rate 18 Respiratory Effort / Characteristics Respiratory Depth Respiratory Pattern Blood Pressure 138/94 Blood Pressure Mean 108 Pulse Oximetry Oxygen Delivery Method Sepsis Recent Fever Within 48 Hours Sepsis New/Unexplained Change in Mental Status Sepsis Action Taken by Nursing Physical Exam GENERAL: She is oriented to person, place, and time. She appears well-developed and well-nourished. She does not appear distressed. HENT: Exam performed. -Head: Normocephalic and atraumatic. -Right Ear: External ear normal. No mastoid tenderness. -Left Ear: External ear normal. No mastoid tenderness. -Mouth/Throat: The oropharynx is clear and moist. No trismus in the jaw. No dental abscesses or uvula swelling. No oropharyngeal exudate or tonsillar abscesses. EYES: Conjunctivae and EOM are normal. Pupils are equal, round, and reactive to light. Right eye exhibits no discharge. Left eye exhibits no discharge. No scleral icterus. NECK: Normal range of motion. Neck supple. No JVD present. No spinous process tenderness present. No carotid bruit present. No rigidity. No tracheal deviation and normal range of motion present. No Brudzinski's sign and no Kernig's sign noted. CV: Normal rate, regular rhythm, normal heart sounds and intact distal pulses. There is no peripheral edema. Palpable radial pulses bue. PULM/CHEST: Effort normal and breath sounds normal. No respiratory distress. No stridor. She has no wheezes. She has no rales. -Chest Wall: She exhibits no tenderness. ABD: Ecchymosis over the left pelvis and left lower quadrant. Patient's incision appears clean and dry. No bleeding from the incision. MUSC/SKEL: Normal range of motion. There is no peripheral edema, tenderness or deformity. LYMPH: No cervical adenopathy. NEURO: She is alert and oriented to person, place, and time. She has normal strength. No cranial nerve deficit or sensory deficit. Coordination and gait normal. GCS eye subscore is 4. GCS verbal subscore is 5. GCS motor subscore is 6. Cerebellar tests wnl. SKIN: Skin is warm and dry. She is not diaphoretic. PSYCH: She has a normal mood and affect. Behavior is normal. Judgment and thought content normal. Course Course 1600: The patient was evaluated in room C2. A complete history and physical exam was performed. Cardiac monitoring: An order was placed for continuous cardiac monitoring. The monitor shows a rate of 80 with sinus rhythm 1606: Spoke with Dr. Humphrey AGENCY SALES DEVELOPMENT ASSOCIATE who states that the patient had an increase in creatinine as well as decrease in her hemoglobin status post her surgery and was need to be transfused 2 units packed red blood cells. At this time Dr. Grey er agrees with CT and lab work-up and will call her back with further when they are available. 1735: Vital signs stable. Labs show a hemoglobin that is 10.5, improved from discharge. Patient's creatinine 0.8 which is within normal limits. CT of the abdomen shows a resolving hematoma and decrease in the density in size of the hemoperitoneum representing a resolution of the prior hemorrhage since no acute surgical event mention was taken. Patient also has an elevated d-dimer.This could be due to her recent surgery however it also could represent a PE given the patient's symptoms. I did discuss the findings with Dr. Carpenter AGENCY SALES DEVELOPMENT ASSOCIATE. Patient is unable to get a CTA of the chest because she has a anaphylactic reaction to iodine. The patient will be admitted to the hospitalist service and have a VQ scan done in the morning with AGENCY SALES DEVELOPMENT ASSOCIATE on consult. Serial hemoglobins will be done and AGENCY SALES DEVELOPMENT ASSOCIATE will follow patient. Dr. Carpenter is in agreement with this plan and agrees to be on consult. Dr. Arevalo [facility] hospitalist was notified about the patient. Administered Medications Discontinued Medications Sodium Chloride (Nss 1000ml) 1,000 mls @ 999 mls/hr IV .Q1H1M ONE Stop: 12/01/19 16:56 Last Infusion: 12/01/19 17:29 Dose: 0 mls/hr Documented by: [id number] Admin: 12/01/19 16:31 Dose: 999 mls/hr Documented by: [id number] Acetaminophen (Ofirmev) 1,000 mg in 100 mls @ 400 mls/hr IV NOW STA Stop: 12/01/19 16:10 Last Infusion: 12/01/19 16:50 Dose: 0 mls/hr Documented by: [id number] Admin: 12/01/19 16:31 Dose: 400 mls/hr Documented by: [id number] Medical Decision Making Laboratory Data Result diagrams: 12/01/19 16:07 12/01/19 16:07 Lab Results 12/01/19 12/01/19 12/01/19 Range/Units 16:07 16:07 16:07 WBC 9.86 (4.8-10.8) K/uL RBC 3.45 L (4.2-5.4) M/uL Hgb 10.5 L (12.0-16.0) g/dL Hct 32.5 L (37-47) % MCV 94.2 (80-100) fL MCH 30.4 (25-34) pg MCHC 32.3 (32-36) g/dL RDW Std Deviation 48.8 H (36.4-46.3) fL RDW Coeff of Brodie 14.4 (11.5-14.5) % Plt Count 442 H (130-400) K/uL MPV 9.5 (7.4-10.4) fL Immature Gran % (Auto) 0.5 % Neut % (Auto) 74.3 % Lymph % (Auto) 12.7 % Valley % (Auto) 10.1 % Eos % (Auto) 2.1 % Baso % (Auto) 0.3 % Immature Gran # (Auto) 0.05 H (0.00-0.02) K/uL Neut # (Auto) 7.32 H (1.4-6.5) K/uL Lymph # (Auto) 1.25 (1.2-3.4) K/uL Valley # (Auto) 1.00 H (0.11-0.59) K/uL Eos # (Auto) 0.21 (0-0.5) K/uL Baso # (Auto) 0.03 (0-0.2) K/uL PT 11.1 (9.0-12.0) Seconds INR 1.1 (0.9-1.1) APTT 28.5 (21.0-31.0) Seconds PTT Ratio 1.0 D-Dimer 42822 H* (0-500) ug/L FEU Sodium 139 (136-145) mmol/L Potassium 3.7 (3.5-5.1) mmol/L Chloride 106 (98-107) mmol/L Carbon Dioxide 29 (21-32) mmol/L Anion Gap 4.0 (3-11) BUN 7 (7-18) mg/dl Creatinine 0.80 (0.6-1.2) mg/dl Est Cr Clr Drug Dosing Not Reportable Est GFR ( Amer) 98.9 Est GFR (Non-Af Amer) 85.4 BUN/Creatinine Ratio 8.2 L (10-20) Glucose 91 (70-99) mg/dl Calcium 9.2 (8.5-10.1) mg/dl Total Bilirubin 1.6 H (0.2-1) mg/dl Direct Bilirubin 0.3 H (0-0.2) mg/dl AST 42 H (15-37) U/L ALT 16 (12-78) U/L Alkaline Phosphatase 49 (45-117) U/L Troponin I < 0.015 (0-0.045) ng/ml Total Protein 7.5 (6.4-8.2) gm/dl Albumin 3.5 (3.4-5.0) gm/dl Lipase 119 (73-393) U/L Blood Type Antibody Screen 12/01/19 Range/Units 16:07 WBC (4.8-10.8) K/uL RBC (4.2-5.4) M/uL Hgb (12.0-16.0) g/dL Hct (37-47) % MCV (80-100) fL MCH (25-34) pg MCHC (32-36) g/dL RDW Std Deviation (36.4-46.3) fL RDW Coeff of Brodie (11.5-14.5) % Plt Count (130-400) K/uL MPV (7.4-10.4) fL Immature Gran % (Auto) % Neut % (Auto) % Lymph % (Auto) % Valley % (Auto) % Eos % (Auto) % Baso % (Auto) % Immature Gran # (Auto) (0.00-0.02) K/uL Neut # (Auto) (1.4-6.5) K/uL Lymph # (Auto) (1.2-3.4) K/uL Valley # (Auto) (0.11-0.59) K/uL Eos # (Auto) (0-0.5) K/uL Baso # (Auto) (0-0.2) K/uL PT (9.0-12.0) Seconds INR (0.9-1.1) APTT (21.0-31.0) Seconds PTT Ratio D-Dimer (0-500) ug/L FEU Sodium (136-145) mmol/L Potassium (3.5-5.1) mmol/L Chloride (98-107) mmol/L Carbon Dioxide (21-32) mmol/L Anion Gap (3-11) BUN (7-18) mg/dl Creatinine (0.6-1.2) mg/dl Est Cr Clr Drug Dosing Est GFR ( Amer) Est GFR (Non-Af Amer) BUN/Creatinine Ratio (10-20) Glucose (70-99) mg/dl Calcium (8.5-10.1) mg/dl Total Bilirubin (0.2-1) mg/dl Direct Bilirubin (0-0.2) mg/dl AST (15-37) U/L ALT (12-78) U/L Alkaline Phosphatase (45-117) U/L Troponin I (0-0.045) ng/ml Total Protein (6.4-8.2) gm/dl Albumin (3.4-5.0) gm/dl Lipase (73-393) U/L Blood Type B Positive Antibody Screen NEGATIVE Imaging Data Radiologist's Impression: CT abd pelvis wo con CLINICAL HISTORY: 49 years-old Female presenting with post op pain brusing/bleeding abd hematoma. TECHNIQUE: Multidetector CT of the abdomen and pelvis was performed without the use of intravenous contrast. IV contrast: None. One or more dose lowering techniques were used consistent with the principles of ALARA (as low as reasonably achievable), including automatic exposure control, mA or kV adjustment to individual patient size, and/or use of iterative reconstruction. COMPARISON: 11/25/2019. CT DOSE (mGy.cm): The estimated cumulative dose is 416.28 mGy.cm. FINDINGS: Core Cleaner topogram: Unremarkable. Lung bases: Normal heart size. The interventricular blood flow is less dense than adjacent myocardium consistent with anemia as on prior exam. No pericardial or pleural effusion. Mild patchy groundglass opacity at the lung bases, either mild edema or atelectasis. Liver: Normal morphology. Normal density. Biliary: No gross biliary ductal dilatation allowing for noncontrast technique. Normal gallbladder. Pancreas: Normal noncontrast appearance. Spleen: Normal noncontrast appearance. Adrenal glands: Normal noncontrast appearance. Kidneys and ureters: Normal noncontrast appearance. No nephrolithiasis. No hydronephrosis. Normal ureters. Bladder: Circumferential bladder wall thickening likely due to underdistention. Pelvic organs: No uterus. Low-density sheetlike surgical material in the hysterectomy bed may represent Surgicel. This is unchanged. Bowel: Normal noncontrast appearance. No bowel obstruction. Peritoneal cavity: Small volume high density fluid in the abdomen and pelvis consistent with hemoperitoneum. This has evolved since the prior exam is overall decreased in density and decreased in volume. There may have been interval surgical intervention with washout. Resolved pneumoperitoneum. Lymph nodes: No gross lymphadenopathy allowing for noncontrast technique. Vasculature: Normal noncontrast appearance. Abdominal wall: Interval decrease in size of the abdominal wall hematoma with decreased infiltrative edema or hemorrhage tracking along the left lateral abdominal wall and into the left mons/inguinal region. Scattered foci of soft tissue emphysema within the anterior abdominal wall likely on a postsurgical basis. Prosthetic mesh may also be in place with a Pfannenstiel incision. Musculoskeletal: Degenerative related facet arthropathy with cystic or erosive changes on the right at L4-5. IMPRESSION: 1. Interval decrease in size and density of hemoperitoneum and significant decreased size of the left abdominal wall hematoma and surrounding infiltrative changes. Findings may indicate interval surgical intervention or resolution of prior hemorrhage. 2. Status post hysterectomy. 3. Anemia. 4. Additional findings as above. ACT 112: Negative or not required by law. Electronically signed by: Mitul Harper M.D. 12/01/2019 5:19 PM Dictated: 12/01/191711 Transcribed: 12/01/191711 ECG Data Indication: + SOB/dyspnea Rate (beats per minute): 88 Rhythm: + normal sinus ECG Intervals/blocks: + Normal QRS, + Normal MN and + Normal QT-c ECG ST segments: + Normal ST segments and + T-wave inversions (Lead III only) MDM Narrative 1600: The patient was evaluated in room C2. A complete history and physical exam was performed. Cardiac monitoring: An order was placed for continuous cardiac monitoring. The monitor shows a rate of 80 with sinus rhythm 1606: Spoke with Dr. Humphrey AGENCY SALES DEVELOPMENT ASSOCIATE who states that the patient had an increase in creatinine as well as decrease in her hemoglobin status post her surgery and was need to be transfused 2 units packed red blood cells. At this time Dr. Humphrey agrees with CT and lab work-up and will call her back with further when they are available. 1735: Vital signs stable. Labs show a hemoglobin that is 10.5, improved from discharge. Patient's creatinine 0.8 which is within normal limits. CT of the abdomen shows a resolving hematoma and decrease in the density in size of the hemoperitoneum representing a resolution of the prior hemorrhage since no acute surgical event mention was taken. Patient also has an elevated d-dimer.This could be due to her recent surgery however it also could represent a PE given the patient's symptoms. I did discuss the findings with Dr. Carpenter AGENCY SALES DEVELOPMENT ASSOCIATE. Patient is unable to get a CTA of the chest because she has a anaphylactic reaction to iodine. The patient will be admitted to the hospitalist service and have a VQ scan done in the morning with AGENCY SALES DEVELOPMENT ASSOCIATE on consult. Serial hemoglobins will be done and AGENCY SALES DEVELOPMENT ASSOCIATE will follow patient. Dr. Carpenter is in agreement with this plan and agrees to be on consult. Dr. Arevalo [facility] hospitalist was notified about the patient. Impression & Plan Dyspnea, D-dimer, elevated Discharge Plan Visit Data Chief Complaint: Wound Recheck Stated Complaint: WOUND RECHECK, REF'D BY DR SCHMITZ ED Provider: Kaushik Dueñas Discharge Problem: Dyspnea, D-dimer, elevated Patient Disposition: Being Evaluated by Hospitalist Forms Stand Alone Forms: My [facility] Prescriptions Prescriptions: No Action ondansetron HCl [Zofran] 4 mg tablet 4 mg PO Q6H PRN (Reason: nausea and vomiting) Qty: 20 RF: 1 azelastine 137 mcg (0.1 %) aerosol,spray 2 sprays INTNAS QAM PRN (Reason: Nasal Congestion) RF: 0 latanoprost 0.005 % drops 1 drops OP QPM RF: 0 multivitamin Tablet 1 tab PO QAM RF: 0 hydrocodone-acetaminophen [[place]] 5-325 mg tablet 1 tab PO Q6H PRN (Reason: pain) Qty: 20 RF: 0 ibuprofen 600 mg tablet 600 mg PO Q6H PRN (Reason: pain) Qty: 30 RF: 2 Referrals Referrals: Ara Barbour [Primary Care Provider] -
[2019-12-01 16:22] LABS: Basophils # (auto) 0.03 K/uL (0-0.2); Basophils % (auto) 0.3 %; Eosinophils # (auto) 0.21 K/uL (0-0.5); Eosinophils % (auto) 2.1 %; Hematocrit (blood only) 32.5 % (37-47); Hemoglobin 10.5 g/dL (12.0-16.0); Immature Granulocytes # (auto) 0.05 K/uL (0.00-0.02); Immature Granulocytes % (auto) 0.5 %; Lymphocytes # (auto) 1.25 K/uL (1.2-3.4); Lymphocytes % (auto) 12.7 %; Mean Corpuscular Hemoglobin 30.4 pg (25-34); Mean Corpuscular Hgb Conc 32.3 g/dL (32-36); Mean Corpuscular Volume 94.2 fL (80-100); Mean Platelet Volume 9.5 fL (7.4-10.4); Monocytes % (auto) 10.1 %; Neutrophils # (auto) 7.32 K/uL (1.4-6.5); Neutrophils % (auto) 74.3 %; Platelet Count 442 K/uL (130-400); RDW Coefficient of Variation 14.4 % (11.5-14.5); RDW Standard Deviation 48.8 fL (36.4-46.3); Red Blood Count 3.45 M/uL (4.2-5.4); White Blood Count 9.86 K/uL (4.8-10.8)
--- NOTE | 2019-12-01 16:37 | XRay Report ---
XR chest 1V portable CLINICAL HISTORY: 49 years-old Female presenting with sob. TECHNIQUE: Portable upright AP view of the chest was obtained. COMPARISON: 11/12/[address] of abdomen and pelvis from 11/25/2019. FINDINGS: Cardiomediastinal silhouette normal. Mildly low lung volumes with slight vascular crowding at the eren g bases. Minimal nodular opacity at the left lung base. No large effusion or pneumothorax. Osseous st ructures normal. Upper abdomen normal. IMPRESSION: 1. Minimal nodular opacity at the left lung base. This may relate to underlying peribronchovascular infiltrates, vascular crowding, or atelectasis. This is similar to the prior CT of abdomen and pelvis from 11/25/2019. ACT 112: Negative or not required by law. Electronically signed by: Mitul Harper M.D. 12/01/2019 4:35 PM
[2019-12-01 16:42] LABS: Alanine Aminotransferase 16 U/L (12-78); Albumin Level 3.5 gm/dl (3.4-5.0); BUN Creatinine Ratio 8.2 (10-20); Blood Urea Nitrogen 7 mg/dl (7-18); Calcium 9.2 mg/dl (8.5-10.1); Carbon Dioxide 29 mmol/L (21-32); Chloride 106 mmol/L (98-107); Est GFR (African American) 98.9; Est GFR (Non-African American) 85.4; Glucose 91 mg/dl (70-99); Lipase 119 U/L (73-393); Sodium 139 mmol/L (136-145)
[2019-12-01 16:45] LABS: Alkaline Phosphatase 49 U/L (45-117); Bilirubin,Total 1.6 mg/dl (0.2-1); Total Protein 7.5 gm/dl (6.4-8.2); Troponin I < 0.015 ng/ml (0-0.045)
[2019-12-01 16:48] LABS: Aspartate Aminotransferase 42 U/L (15-37); Bilirubin Direct 0.3 mg/dl (0-0.2); Potassium 3.7 mmol/L (3.5-5.1)
[2019-12-01 16:52] LABS: INR 1.1 (0.9-1.1); Partial Thromboplastin Time 28.5 Seconds (21.0-31.0); Prothrombin Time 11.1 Seconds (9.0-12.0)
[2019-12-01 16:57] LABS: D Dimer 14400 ug/L FEU (0-500)
--- NOTE | 2019-12-01 17:20 | CT Scan Report ---
CT abd pelvis wo con CLINICAL HISTORY: 49 years-old Female presenting with post op pain brusing/bleeding abd hematoma. TECHNIQUE: Multidetector CT of the abdomen and pelvis was performed without the use of intravenous co ntrast. IV contrast: None. One or more dose lowering techniques were used consistent with the princip les of ALARA (as low as reasonably achievable), including automatic exposure control, mA or kV adjust ment to individual patient size, and/or use of iterative reconstruction. COMPARISON: 11/25/2019. CT DOSE (mGy.cm): The estimated cumulative dose is 416.28 mGy.cm. FINDINGS: New Account Interviewer topogram: Unremarkable. Lung bases: Normal heart size. The interventricular blood flow is less dense than adjacent myocardium consistent with anemia as on prior exam. No pericardial or pleural effusion. Mild patchy groundglass opacity at the lung bases, either mild edema or atelectasis. Liver: Normal morphology. Normal density. Biliary: No gross biliary ductal dilatation allowing for noncontrast technique. Normal gallbladder. Pancreas: Normal noncontrast appearance. Spleen: Normal noncontrast appearance. Adrenal glands: Normal noncontrast appearance. Kidneys and ureters: Normal noncontrast appearance. No nephrolithiasis. No hydronephrosis. Normal ure ters. Bladder: Circumferential bladder wall thickening likely due to underdistention. Pelvic organs: No uterus. Low-density sheetlike surgical material in the hysterectomy bed may represe nt Surgicel. This is unchanged. Bowel: Normal noncontrast appearance. No bowel obstruction. Peritoneal cavity: Small volume high density fluid in the abdomen and pelvis consistent with hemoperi toneum. This has evolved since the prior exam is overall decreased in density and decreased in volume . There may have been interval surgical intervention with washout. Resolved pneumoperitoneum. Lymph nodes: No gross lymphadenopathy allowing for noncontrast technique. Vasculature: Normal noncontrast appearance. Abdominal wall: Interval decrease in size of the abdominal wall hematoma with decreased infiltrative edema or hemorrhage tracking along the left lateral abdominal wall and into the left mons/inguinal re gion. Scattered foci of soft tissue emphysema within the anterior abdominal wall likely on a postsurg ical basis. Prosthetic mesh may also be in place with a Pfannenstiel incision. Musculoskeletal: Degenerative related facet arthropathy with cystic or erosive changes on the right a t L4-5. IMPRESSION: 1. Interval decrease in size and density of hemoperitoneum and significant decreased size of the lef t abdominal wall hematoma and surrounding infiltrative changes. Findings may indicate interval surgic al intervention or resolution of prior hemorrhage. 2. Status post hysterectomy. 3. Anemia. 4. Additional findings as above. ACT 112: Negative or not required by law. Electronically signed by: Mitul Harper M.D. 12/01/2019 5:19 PM
--- NOTE | 2019-12-01 18:30 | History & Physical Report ---
Date of Service December 01, 2019 Assessment & Plan (1) Dyspnea: Concern from patient and her quality assurance nurse regarding PE. No tachycardia or hypoxia to suggest this. Low risk Well's score (1.5) although no specific alternative diagnosis causing her ongoing symptoms other than post operative hematoma and atelectasis therefore recommend inpatient workup with V/Q scan. No WBC or significant CXR findings to suggest PNA. No COVID-19 exposure, signs or symptoms other than subjective shortness of osmin th therefore no need to test for this. US LE bilateral Doppler now to see if she will need anticoagulation overnight. V/Q scan tomorrow. (2) Chest heaviness: Inferior TWI new since prior EKG on November 11. Troponin negative in ER. No specific cardiac symptoms but given chest heaviness, fatigue and shortness of breath warrants repeat EKG now and in AM with resting echocardiogram. Consider inpatient/outpatient stress echo if above workup normal. No current chest pain or shortness of breath and troponin negative in ER which is reassuring. Will defer any treatment for CAD given low likelihood and abdominal wall hematoma. (3) Fatigue: as above for shortness of breath and chest heaviness (4) Anemia: Hgb improved since prior discharge therefore doubtful causing her to be worse in the last 1-2 days. Repeat Hgb in AM. (5) Abdominal wall hematoma: Improving on CT today from prior. Likely cause of elevated bilirubin. (6) Pelvic pain in female: No dysuria to suggest UTI. Likely due to recent operation. Will continue her outpatient acetaminophen, ibuprofen and [place] with ondansetron for nausea. Consult [facility] (Dr Castillo). (7) S/P hysterectomy with oophorectomy: noted (8) Glaucoma: Continue latanoprost QPM (9) DVT prophylaxis: SCDs, will need IV heparin drip if DVT or PE confirmed in light of post operative hematoma. Admission and Anticipated Discharge Date Admission Date: 12/01/2019 Anticipated date of discharge: 12/02/19 History of Present Illness Chief Complaint: Fatigue, shortness of breath, chest heaviness Primary Care Provider: Ara Barbour Gwendolyn Jordan is a 49 year old female who presents to the ER with weakness in both legs, generalized fatigue, shortness of breath and chest heaviness. She recently underwent total abdominal hysterectomy, left salpingectomy and right oophorectomy on November [address] Castillo due to large fibroid, pelvic pain and abnormal menses. After this operation she developed a post operative anemia requiring 2 units blood transfusion with subsequent CT confirming left abdominal wall hematoma and hemoperitoneum ultimately not requiring any additional surgeries. Since that operation she has been fatigued, nauseated, tired with generalized weakness. Initially felt her symptoms were not getting any worse since her operation but also tells me she was unable to get around today since getting up because she was feeling so tired and weak which is new from previous. The shortness of breath and chest heaviness only started today although she says it is hard for her to say whether she was having these earlier in the week. Came on at rest. No associated diaphoresis. Nausea is independant of these symptoms. Not feeling short of breath currently. No cough, fevers, chills, wheezing. No known COVID-19 exposure. She notes feeling nauseous all the time since the operation but also the pain medications make this worse but she has not been taking the ondansetron except for yesterday. Weakness is bilateral lower extremity, no co-ordination issue, associated with her generalized fatigue. She is taking [place] since her operation but since she feels nauseous with this she is only taking one half twice a day. Allergies Allergy/AdvReac Type Severity Reaction Status Date / Time iodine Allergy Severe Swelling Verified 12/01/19 15:56 of Tongue, difficult swallowing kiwi Allergy Severe throat Verified 12/01/19 15:56 itching/throat swelling shellfish derived Allergy Severe throat Verified 12/01/19 15:56 itching/throat swelling Home Medications Home Medications Medication Instructions Recorded Confirmed Type azelastine 137 mcg (0.1 %) nasal 2 sprays INTNAS QAM PRN 01/06/19 12/01/19 History spray aerosol latanoprost 0.005 % eye drops 1 drops OP QPM 01/06/19 12/01/19 History multivitamin 1 tab PO QAM 08/26/19 12/01/19 History hydrocodone-acetaminophen [[place]] 1 tab PO Q6H PRN #20 tab 11/27/19 12/01/19 Rx ibuprofen 600 mg PO Q6H PRN #30 tab 11/27/19 12/01/19 Rx ondansetron HCl 4 mg tablet 4 mg PO Q6H PRN #20 tab 11/29/19 12/01/19 Rx Past Med/Surg History Medical History Anemia Glaucoma Herniated cervical disc Menorrhagia Osteoarthritis Surgical History H/O myomectomy H/O ovarian cystectomy History of colonoscopy with polypectomy History of left breast biopsy x2--benign History of right breast biopsy x2--benign History of wisdom tooth extraction Family History Aunt Family hx of colon cancer Grandfather Hearing loss Cardiac disorder Grandmother Stroke Uncle Family hx colonic polyps Other No family history of adverse response to anesthesia Social History Preferred Language: Panamanian Communication Ability: Effective Optometric Technologist Required: No Beliefs That Will Affect Care: None Current Living Situation: Alone Feels Safe at Home: Yes Smoking Status: Never smoker Second Hand Exposure: No ; Hx Alcohol Use: Yes Alcohol type: hard liquor Hx Substance Use: No Review of Systems Review of Systems: All systems reviewed & are unremarkable except as noted in HPI & below Constitutional: + fatigue and + weakness; no fever, no chills and no body aches Eyes: no dry eyes and no eye pain Respiratory: + dyspnea; no hemoptysis and no wheezing Cardiovascular: + Raynauds symptoms (bilateral toes); no chest pain, no dyspnea, no orthopnea, no palpitations, no lightheadedness, no syncope, no calf pain and no claudication Gastrointestinal: + abdominal pain (associated with bowel movement but not anal pain), + bloating, + nausea and + diarrhea/loose stools (few loose stools); no heartburn, no hematemesis, no pain with swallowing, no dysphagia and no constipation Genitourinary: no dysuria, no difficulty urinating and no urinary frequency Musculoskeletal: no back pain Integumentary: no rash Neurologic: no falls, no localized weakness, no numbness, no lack of coordination, no radiating pain, no tremor(s), no restless legs and no headache(s) Psychiatric: no problem reported Physical Exam Constitutional: well developed and well nourished; no acute distress (occasional distress with BP cuff pressure) Eyes: + anicteric sclerae; normal pupil size ENMT: external ear and nose normal, oropharynx normal Neck: trachea midline, no thyromegaly Respiratory: normal respiratory effort and able to speak in complete sentences; no respiratory distress, does not use accessory muscles and no cough Auscultation: + crackles (mild bilateral bases with poor inspiratory effort); no rales, no rhonchi and no wheezes Cardiovascular: Rate/Rhythm: regular rate and regular rhythm Heart Sounds: normal S1 and normal S2; no murmur Vessels: normal peripheral pulses, posterior tibial pulses present and dorsalis pedis pulses present; no JVD Extremities: normal capillary refill; no calf tenderness and no pedal edema Gastrointestinal (Abdomen): normal bowel sounds, soft, nontender, no hepatosplenomegaly Musculoskeletal: no cyanosis or clubbing, extremities motor strength 5/5 Skin: + ecchymosis (LLQ abdomen) Neurologic: moves all extremities and awake; no focal motor deficits and not confused Psychiatric: Orientation: alert and oriented x 3 Apperance: appropriately dressed and appropriately groomed Eye Contact: good eye contact Speech: normal rate/rhythm/volume of speech Affect: + flat affect Results & Data Results & Data ([facility]) Vital Signs (Past 12 Hours) Vital Signs Temp Pulse Resp BP Pulse Ox 12/01/19 17:30 84 19 147/97 H 12/01/19 17:11 80 18 145/97 H 98 12/01/19 16:30 20 156/92 H 12/01/19 16:00 20 148/93 H 12/01/19 15:40 37.5 C 88 19 154/97 H 99 12/01/19 15:13 37.6 C H 95 H 16 149/[address] abd pelvis wo con IMPRESSION: 1. Interval decrease in size and density of hemoperitoneum and significant decreased size of the left abdominal wall hematoma and surrounding infiltrative changes. Findings may indicate interval surgical intervention or resolution of prior hemorrhage. 2. Status post hysterectomy. 3. Anemia. XR chest 1V portable IMPRESSION: 1. Minimal nodular opacity at the left lung base. This may relate to underlying peribronchovascular infiltrates, vascular crowding, or atelectasis. This is similar to the prior CT of abdomen and pelvis from 11/25/2019. ECG Indication: chest pain Rate (beats per minute): 88 Rhythm: normal sinus Findings: + T-wave inversion (Inferior) Comparison ECG Date: from (11/12/2019) Change: the following changes noted (Inferior TWI) Additional Comments: Tw change possibly related to lead placement Code Status & VTE Plan Code Status Full VTE Prophylaxis Plan VTE Prophylaxis will be ordered: Yes Reason for no VTE drug order: Treatment not indicated PG Care Time/CCT Total # of Minutes Spent Total Time Spent with Patient: Total time spent is greater than 50% in coordination of care (as documented) at patient's floor/unit and/or counseling patient: Coding Level of Care Code 83447 OBS Care - Level 3 Diagnoses Dyspnea R06.00 Dyspnea type: dyspnea on exertion Chest heaviness R07.89 Fatigue R53.83 Fatigue type: other Anemia D50.8 Anemia type: iron deficiency Iron deficiency anemia type: other iron deficiency Abdominal wall hematoma S30.1XXD Encounter type: subsequent encounter Pelvic pain in female R10.2 S/P hysterectomy with oophorectomy Z90.710; Z90.721 Glaucoma H40.9 Glaucoma type: unspecified Laterality: bilateral DVT prophylaxis Z29.9 (1) Fatigue Fatigue type: other Qualified Code(s): R53.83 - Other fatigue (2) Dyspnea Dyspnea type: dyspnea on exertion Qualified Code(s): R06.00 - Dyspnea, unspecified (3) Abdominal wall hematoma Encounter type: subsequent encounter Qualified Code(s): S30.1XXD - Contusion of abdominal wall, subsequent encounter (4) Glaucoma Glaucoma type: unspecified Laterality: bilateral Qualified Code(s): H40.9 - Unspecified glaucoma (5) Anemia Anemia type: iron deficiency Iron deficiency anemia type: other iron deficiency Qualified Code(s): D50.8 - Other iron deficiency anemias
--- NOTE | 2019-12-01 19:44 | Ultrasound Report ---
US venous doppler LE CLINICAL HISTORY: 49 years-old Female presenting with bilateral leg pain and swelling. TECHNIQUE: Real-time grayscale and color and spectral Doppler ultrasound imaging of the veins of the bilateral lower extremities was performed. Compression and augmentation were also utilized. COMPARISON: None. FINDINGS: RIGHT: Common femoral vein: Patent. Greater saphenous vein (superficial): Patent. Deep femoral vein: Patent. Femoral vein: Patent. Popliteal vein: Patent. Calf veins: Patent. LEFT: Common femoral vein: Patent. Greater saphenous vein (superficial): Patent. Deep femoral vein: Patent. Femoral vein: Patent. Popliteal vein: Patent. Calf veins: Patent. Other: None. IMPRESSION: No evidence of deep venous thrombosis. ACT 112: Negative or not required by law. Electronically signed by: Mitul Harper M.D. 12/01/2019 7:43 PM
[2019-12-01] MEDS ORDERED: IBUPROFEN 600 MG TAB PO PRN (20:07)
[2019-12-01] MEDS ORDERED: SIMETHICONE 80 MG CHEW PO PRN (20:37)
[2019-12-01] MEDS: HYDROCODONE/ACETAMOPHEN 5/325MG TAB PO PRN (21:00)
[2019-12-01] MEDS: ONDANSETRON INJ 2 MG/ML 2 ML VIAL IV PRN ×2 (21:00→21:04)
[2019-12-01] MEDS: LATANOPROST 0.005% OP SOLN 2.5 ML BTL OP SCH (21:02)
[2019-12-01] MEDS ORDERED: ACETAMINOPHEN 325 MG TAB PO PRN (21:05)
--- NOTE | 2019-12-02 00:22 | OB/GYN Consultation ---
Date of Consultation December 02, 2019 Assessment & Plan (1) Fatigue: (2) Chest heaviness: (3) Dyspnea: (4) S/P hysterectomy with oophorectomy: Workup in the ER revealed stable vitals, stable hgb. CXR was stable. LE dopplers were negative. CT Abd/pelvis showed improvement in both hemoperitoneum and in left abdominal wall hematoma. Expect patient to have bruising along left flank/vulvar area/left thigh, and I warned her that this bruising may get worse before it improves. The imaging and Hgb improvement are both good signs that the abdominal wall hematoma is improving. D-dimer elevated, this is concern for thrombotic process such as PE, if workup for PE is negative, this could possibly be explained by post-op state and abdominal wall hematoma. I think that while PE is less likely, given her improvement since admission in shortness of breath, lack of tachycardia, lack of fever, and normal O2 saturation on room air, agree with workup to rule out PE given her post-operative state and presenting symptom of shortness of breath. Patient unable to undergo CT scan with contrast due to severe iodine allergy, therefore will need VQ scan. Will follow along for further workup results, please call OBGYN if there are questions/concerns. Thank you! (5) Abdominal wall hematoma: History of Present Illness Reason for Consultation: 1 week postop abdominal hysterectomy Requesting Physician: Dr Dueñas Attending Physician: Christ Arevalo MD History of Present Illness 49yo who is POD#7 s/p total abdominal hysterectomy, left salpingectomy, right salpingoophorectomy. Developed abdominal wall hematoma, rec'd 2u PRBC on POD#1, hgb stablized. She was discharged home POD#3. Today, returned to the ER with complaints of nausea, extreme fatigue, and shortness of breath. She had tolerated food yesterday, but today felt nauseated and felt like she could bare ly sit up. Difficult to catch her breath. She called me for advice by phone and was having difficulty speaking in full sentences over the phone. I advised that she go to ER for eval, given her recent postop state. At the time, I was mostly concerned that she may have become anemic, with concerns for further bleeding into abdominal wall hematoma, however also concerned about additional etiologies that could cause shortness of breath, such as pulmonary embolism, pneumonia/atelectasis, etc. Upon my examination this evening, she is feeling better and these symptoms have improved. She tolerated a tuna fish sandwich for dinner at the hospital, and thinks this was tolerable because she took antinausea pain medication prior. Fatigue has improved somewhat. Shortness of breath has improved and able to speak in full sentences. She relates that she has also had hot flashes, this has been going on since before hysterectomy, but no fevers. Allergies Allergy/AdvReac Type Severity Reaction Status Date / Time iodine Allergy Severe Swelling Verified 12/01/19 15:56 of Tongue, difficult swallowing kiwi Allergy Severe throat Verified 12/01/19 15:56 itching/throat swelling shellfish derived Allergy Severe throat Verified 12/01/19 15:56 itching/throat swelling Home Medications Home Medications Medication Instructions Recorded Confirmed Type azelastine 137 mcg (0.1 %) nasal 2 sprays INTNAS QAM PRN 01/06/19 12/01/19 History spray aerosol latanoprost 0.005 % eye drops 1 drops OP QPM 01/06/19 12/01/19 History multivitamin 1 tab PO QAM 08/26/19 12/01/19 History hydrocodone-acetaminophen [[place]] 1 tab PO Q6H PRN #20 tab 11/27/19 12/01/19 Rx ibuprofen 600 mg PO Q6H PRN #30 tab 11/27/19 12/01/19 Rx ondansetron HCl 4 mg tablet 4 mg PO Q6H PRN #20 tab 11/29/19 12/01/19 Rx Patient History Medical History (Updated 12/02/19 @ 00:42 by Chantal Castillo DO) Anemia Cervical high risk HPV (human papillomavirus) test positive Glaucoma Herniated cervical disc Osteoarthritis Surgical History (Updated 12/02/19 @ 00:38 by Chantal Castillo DO) H/O myomectomy H/O ovarian cystectomy H/O total hysterectomy History of colonoscopy with polypectomy History of left breast biopsy x2--benign History of right breast biopsy x2--benign History of wisdom tooth extraction Family History Aunt Family hx of colon cancer Grandfather Hearing loss Cardiac disorder Grandmother Stroke Uncle Family hx colonic polyps Other No family history of adverse response to anesthesia Social History Preferred Language: Syriac Communication Ability: Effective General Inspector Required: No Beliefs That Will Affect Care: None Current Living Situation: Alone Feels Safe at Home: Yes Safety Concerns: Feels Safe At This Time Smoking Status: Never smoker Do You Dip or Chew Tobacco: No ; Second Hand Exposure: No ; Hx Alcohol Use: Yes Alcohol type: hard liquor Hx Substance Use: No Review of Systems Review of Systems: All systems reviewed & are unremarkable except as noted in HPI & below Physical Exam Physical Exam: Gen: AAOx3 NAD. Awake, alert, talkative. Abd: soft, NTTP. Nondistended. Left hip/thigh with some extension of bruising. This is new since discharge on POD#3. Likely hematoma tracking along fascial planes. Incision is clean/dry/intact. +bowel sounds Ext: no calf tenderness. Results & Data Vital Signs (Past 12 Hours) Vital Signs Temp Pulse Pulse Resp BP BP Pulse Ox 12/01/19 23:01 37.0 C 92 H 16 116/75 97 12/01/19 19:30 36.8 C 90 14 138/83 98 12/01/19 19:00 85 18 152/95 H 96 12/01/19 18:00 89 18 138/94 12/01/19 17:30 84 19 147/97 H 12/01/19 17:11 80 18 145/97 H 98 12/01/19 16:30 20 156/92 H 12/01/19 16:00 20 148/93 H 12/01/19 15:40 37.5 C 88 19 154/97 H 99 12/01/19 15:13 37.6 C H 95 H 16 149/91 H 100 PG Care Time/CCT Total # of Minutes Spent Total Time Spent with Patient: Total time spent is greater than 50% in coordination of care (as documented) at patient's floor/unit and/or counseling patient: Coding Level of Care Code 62607 Inpt Consult Level 3 Diagnoses Fatigue R53.83 Fatigue type: other Chest heaviness R07.89 Dyspnea R06.00 Dyspnea type: dyspnea on exertion S/P hysterectomy with oophorectomy Z90.710; Z90.721 Abdominal wall hematoma S30.1XXD Encounter type: subsequent encounter (1) Fatigue Fatigue type: other Qualified Code(s): R53.83 - Other fatigue (2) Dyspnea Dyspnea type: dyspnea on exertion Qualified Code(s): R06.00 - Dyspnea, unspecified (3) Abdominal wall hematoma Encounter type: subsequent encounter Qualified Code(s): S30.1XXD - Contusion of abdominal wall, subsequent encounter
--- NOTE | 2019-12-02 00:59 | Discharge Summary ---
Date of Service December 02, 2019 Admission HPI Per Admitting Provider DISCHARGE SUMMARY FOR SURGICAL ADMISSION Admitted after surgery 11/23, then discharged home 11/27/19. Hospital Course (1) S/P hysterectomy with oophorectomy: Patient underwent total abdominal hysterectomy with left salpingectomy and right salpingoophorectomy for uterine fibroids, abnormal vaginal bleeding, and pelvic pain on 11/24/2019. Please see operative note for further details re: surgery. She then developed decreased urine output and dropping hemoglobin levels on POD#1, was diagnosed with left abdominal wall hematoma. She rec'd 2u PRBC and was also treated with abdominal binder and sand bags applied to her left side. Clinical and laboratory improvement, and she was discharged home in stable/good condition on POD#3. (2) Abdominal wall hematoma: Coding Level of Care Code None Diagnoses S/P hysterectomy with oophorectomy Z90.710; Z90.721 Abdominal wall hematoma S30.1XXD Encounter type: subsequent encounter
[2019-12-02 07:17] LABS: Hematocrit (blood only) 29.3 % (37-47); Hemoglobin 9.5 g/dL (12.0-16.0); Mean Corpuscular Hemoglobin 30.3 pg (25-34); Mean Corpuscular Hgb Conc 32.4 g/dL (32-36); Mean Corpuscular Volume 93.3 fL (80-100); Mean Platelet Volume 9.4 fL (7.4-10.4); Platelet Count 404 K/uL (130-400); RDW Coefficient of Variation 14.4 % (11.5-14.5); RDW Standard Deviation 48.2 fL (36.4-46.3); Red Blood Count 3.14 M/uL (4.2-5.4); White Blood Count 8.41 K/uL (4.8-10.8)
[2019-12-02] MEDS: HYDROCODONE/ACETAMOPHEN 5/325MG TAB PO PRN ×2 (07:32→20:34)
[2019-12-02] MEDS: ONDANSETRON INJ 2 MG/ML 2 ML VIAL IV PRN ×2 (07:33→20:34)
[2019-12-02] MEDS: MULTIVITAMIN TAB PO SCH (07:39)
--- NOTE | 2019-12-02 07:42 | Gynecologic Progress Note ---
Date of Service December 02, 2019 Assessment & Plan Admission and Anticipated Discharge Date Admission Date: December 01, 2019 Anticipated date of discharge: 12/02/19 Subjective Checked in on patient this morning. She is physically feeling ok, voices frustration with being kept awake overnight by intake of another patient in her room at 3am. Otherwise, tolerating PO, ambulating, urinating ok. No vaginal bleeding. Feels pressure with bowel movements, likely related to hysterectomy changes. Vitals normal. Hgb 9.5 this AM - I think this is likely closer to accurate than yesterday's value. Do not suspect this is related to any type of new bleed. Still pending VQ scan as recommended by ER yesterday, discussed with patient that I would anticipate discharge from RAILRO[employer] SHOP INSPECTOR perspective after that is performed (and negative), however discussed that further workup and decision on discharge is ultimately up to hospitalist team. Results & Data ([facility]) Vital Signs (Past 12 Hours) Vital Signs Temp Pulse Pulse Resp BP BP Pulse Ox 12/02/19 07:37 37.1 C 88 18 138/89 96 12/02/19 03:22 36.8 C 84 17 120/77 97 12/01/19 23:01 37.0 C 92 H 16 116/75 97 12/01/19 22:20 95 H 12/01/19 20:25 91 H
[2019-12-02 07:47] LABS: Potassium 3.5 mmol/L (3.5-5.1)
[2019-12-02 07:48] LABS: Albumin Globulin Ratio 0.9 (0.9-2); Albumin Level 3.1 gm/dl (3.4-5.0); BUN Creatinine Ratio 13.6 (10-20); Bilirubin,Total 1.6 mg/dl (0.2-1); Calcium 9.4 mg/dl (8.5-10.1); Est GFR (African American) 114.3; Est GFR (Non-African American) 98.6; Globulin 3.3 gm/dl (2.5-4.0); Total Protein 6.4 gm/dl (6.4-8.2)
--- NOTE | 2019-12-02 09:54 | Nuclear Medicine Report ---
Study: Perfusion lung scan HISTORY: Dyspnea FINDINGS: This study is performed following the administration of 5.5 mCi technetium 99m MAA. There i s no ventilation component. Study confirms a segmental perfusion defect left pulmonary apex. There is no significant abnormality seen on chest series at that site. Perfusion characteristics are otherwise unremarkable. IMPRESSION: High probably of pulmonary embolus left pulmonary apex. Electronically signed by: Roberto Kim M.D. 12/02/2019 9:53 AM
--- NOTE | 2019-12-02 12:31 | Hospitalist Progress Note ---
Date of Service December 02, 2019 Assessment & Plan (1) Pulmonary embolism: After a total hysterectomy on 11/24/2019. V/Q scan on 12/01 was high probability of PE in the left pulmonary apex. - Given recent surgery with hematoma; will start with non-bolus heparin gtt - If she tolerates it, she can be switched to Eliquis in the morning. (2) Chest heaviness: Inferior TWI new since prior EKG on November 11. Troponin negative in ER. - Unchanged EKG on 12/01. Improved symptoms and also now with PE which could explain chest symptoms. -> Low concern for ACS. (3) Anemia: Baseline hgb ~13. After her hysterectomy, she dropped to 7.7 and required 2 units of PRBCs. - Hgb is 9.5 today. Evaluated by her surgeon, Dr. Castillo who feels ongoing bleeding is unlikely. - Will give IV iron infusion today. - Trend hgb (4) Abdominal wall hematoma: Due to hysterectomy. Improving on CT today from prior. Likely cause of elevated bilirubin. - crayon grader following (5) Pelvic pain in female: No dysuria to suggest UTI. Likely due to recent operation. - Continue her outpatient acetaminophen & [place] with ondansetron for nausea. - Hold ibuprofen for starting anticoagulation (6) S/P hysterectomy with oophorectomy: As above (7) Glaucoma: - Continue latanoprost QPM (8) DVT prophylaxis: [facility] Admission and Anticipated Discharge Date Admission Date: December 01, 2019 Subjective Less shortness of breath today. She is tired from having a tough time being woken up last night. Abdominal pain still present. Reports no fevers/chills, chest pain, nausea, or vomiting. Physical Exam Constitutional: WD/WN, vitals as above + acute distress and cooperative Eyes: EOM intact bilaterally; no conjunctival abnormality ENMT: external ear and nose normal, oropharynx normal Neck: trachea midline, no thyromegaly normal visual inspection Respiratory: normal respiratory effort, lungs clear to auscultation no respiratory distress Cardiovascular: RRR, no murmur, no edema Gastrointestinal (Abdomen): Inspection/Auscultation: abdomen normal to inspection; abdomen not distended Musculoskeletal: no cyanosis or clubbing, extremities motor strength 5/5 Skin: no rashes, warm and dry Neurologic: moves all extremities and awake Psychiatric: Orientation: alert, oriented to person and cooperative Results & Data Results & Data ([facility]) Vital Signs (Past 12 Hours) Vital Signs Temp Pulse Pulse Resp BP BP Pulse Ox 12/02/19 11:31 36.8 C 82 18 132/82 98 12/02/19 08:00 83 12/02/19 07:37 37.1 C 88 18 138/89 96 12/02/19 03:22 36.8 C 84 17 120/77 97 PG Care Time/CCT Total # of Minutes Spent Total Time Spent with Patient: Total time spent is greater than 50% in coordination of care (as documented) at patient's floor/unit and/or counseling patient: Coding Level of Care Code 75159 Subseq Hosp Care Lvl 3 Diagnoses Pulmonary embolism I26.99 Chest heaviness R07.89 Anemia D50.8 Anemia type: iron deficiency Iron deficiency anemia type: other iron deficiency Abdominal wall hematoma S30.1XXD Encounter type: subsequent encounter Pelvic pain in female R10.2 S/P hysterectomy with oophorectomy Z90.710; Z90.721 Glaucoma H40.9 Glaucoma type: unspecified Laterality: bilateral DVT prophylaxis Z29.9 (1) Anemia Anemia type: iron deficiency Iron deficiency anemia type: other iron deficiency Qualified Code(s): D50.8 - Other iron deficiency anemias (2) Abdominal wall hematoma Encounter type: subsequent encounter Qualified Code(s): S30.1XXD - Contusion of abdominal wall, subsequent encounter (3) Glaucoma Glaucoma type: unspecified Laterality: bilateral Qualified Code(s): H40.9 - Unspecified glaucoma
[2019-12-02] MEDS ORDERED: HEPARIN SODIUM/DEXTROSE 25,000 UNITS/500 ML BAG IV SCH (13:32)
[2019-12-02] MEDS ORDERED: Heparin IV Low Dose *NO* Bolus IV SCH (13:39)
[2019-12-02] MEDS ORDERED: ONDANSETRON 4 MG OD TAB PO PRN (13:39)
[2019-12-02] MEDS ORDERED: HEPARIN IV BOLUS 4,000 UNITS in SYRINGE 0 ML IV ONE (13:58)
--- NOTE | 2019-12-02 15:25 | Electrocardiogram Report ---
Test Reason : Blood Pressure : / mmHG Vent. Rate : 088 BPM Atrial Rate : 088 BPM P-R Int : 140 ms QRS Dur : 078 ms QT Int : 368 ms P-R-T Axes : 060 022 016 degrees QTc Int : 445 ms Normal sinus rhythm Nonspecific T wave abnormality Abnormal ECG When compared with ECG of 12-NOV-2019 12:37, Vent. rate has increased BY 30 BPM T wave inversion now evident in Inferior leads Inverted T waves have replaced nonspecific T wave abnormality in Anterior leads Confirmed by Phan Britt ([id number]) on 12/02/2019 3:25:34 PM Referred By: Chantal Castillo Confirmed By:Phan Britt
--- NOTE | 2019-12-02 15:36 | Electrocardiogram Report ---
Test Reason : Blood Pressure : / mmHG Vent. Rate : 082 BPM Atrial Rate : 082 BPM P-R Int : 168 ms QRS Dur : 074 ms QT Int : 364 ms P-R-T Axes : 061 041 014 degrees QTc Int : 425 ms Poor data quality, interpretation may be adversely affected Normal sinus rhythm Nonspecific ST and T wave abnormality Abnormal ECG When compared with ECG of 01-DEC-2019 16:37, (unconfirmed) No significant change was found Confirmed by Phan Britt ([id number]) on 12/02/2019 3:35:49 PM Referred By: Chantal Castillo Confirmed By:Phan Britt
[2019-12-02] MEDS: DOCUSATE SODIUM 100 MG CAP PO SCH (15:53)
--- NOTE | 2019-12-02 16:06 | XCELERA ---
[id number]
[2019-12-02] MEDS: LATANOPROST 0.005% OP SOLN 2.5 ML BTL OP SCH (20:34)
[2019-12-02 20:49] LABS: Partial Thromboplastin Ratio 1.2; Partial Thromboplastin Time 32.4 Seconds (21.0-31.0)
[2019-12-02] MEDS ORDERED: HEPARIN IV BOLUS 4,500 UNITS in SYRINGE 0 ML IV STA (20:57)
[2019-12-03 03:22] LABS: Hematocrit (blood only) 30.4 % (37-47); Mean Corpuscular Hemoglobin 30.7 pg (25-34); Mean Corpuscular Hgb Conc 32.9 g/dL (32-36); Mean Corpuscular Volume 93.3 fL (80-100); Mean Platelet Volume 9.1 fL (7.4-10.4); Platelet Count 470 K/uL (130-400); RDW Coefficient of Variation 14.3 % (11.5-14.5); RDW Standard Deviation 47.9 fL (36.4-46.3); Red Blood Count 3.26 M/uL (4.2-5.4); White Blood Count 9.39 K/uL (4.8-10.8)
[2019-12-03 03:38] LABS: Partial Thromboplastin Ratio 1.5; Partial Thromboplastin Time 40.6 Seconds (21.0-31.0)
[2019-12-03 03:50] LABS: Potassium 4.1 mmol/L (3.5-5.1)
[2019-12-03 03:51] LABS: BUN Creatinine Ratio 11.5 (10-20); Calcium 8.7 mg/dl (8.5-10.1); Creatinine Clr Calc Pharmacy 89.2 ml/min
[2019-12-03] MEDS ORDERED: HEPARIN IV BOLUS 4,500 UNITS in SYRINGE 0 ML IV ONE (04:01)
[2019-12-03 07:29] VITALS: PULSE 89; TEMP 98.6; O2SAT 97
[2019-12-03] MEDS ORDERED: APIXABAN 5 MG TABLET PO SCH (09:15)
[2019-12-03] MEDS: DOCUSATE SODIUM 100 MG CAP PO SCH (09:43)
[2019-12-03] MEDS: MULTIVITAMIN TAB PO SCH (09:44)
[2019-12-03] MEDS ORDERED: IRON SUCROSE 300 MG in SODIUM CHLORIDE 0.9% 250 ML IV ONE (09:45)
[2019-12-03 11:33] VITALS: BP 135/87
--- NOTE | 2019-12-03 17:13 | Discharge Summary ---
Date of Service December 03, 2019 Principal Diagnosis Left pulmonary embolism Discharge Exam Constitutional WD/WN, vitals as above + acute distress and cooperative Eyes EOM intact bilaterally; no conjunctival abnormality ENMT external ear and nose normal, oropharynx normal Neck trachea midline, no thyromegaly normal visual inspection Respiratory normal respiratory effort, lungs clear to auscultation no respiratory distress Cardiovascular RRR, no murmur, no edema Gastrointestinal (Abdomen) Inspection/Auscultation: abdomen normal to inspection; abdomen not distended Musculoskeletal no cyanosis or clubbing, extremities motor strength 5/5 Skin no rashes, warm and dry Neurologic moves all extremities and awake Psychiatric Orientation: alert, oriented to person and cooperative Discharge Data Allergies Allergy/AdvReac Type Severity Reaction Status Date / Time iodine Allergy Severe Swelling Verified 12/01/19 15:56 of Tongue, difficult swallowing kiwi Allergy Severe throat Verified 12/01/19 15:56 itching/throat swelling shellfish derived Allergy Severe throat Verified 12/01/19 15:56 itching/throat swelling Consultations 12/01/19 17:34 ED Decision to Admit Stat 12/01/19 21:20 Consult Gynecology Routine Ordered Studies 12/01/19 15:57 CT abd pelvis wo con Stat 12/01/19 18:47 US venous doppler LE Stat Hospital Course (1) Pulmonary embolism: After a total hysterectomy on 11/24/2019. V/Q scan on 12/01 was high probability of PE in the left pulmonary apex. - Given recent surgery with hematoma; will start with non-bolus heparin gtt - No indication of bleeding. [place] well. Hgb stable/improving. Started on Eliquis x 3 months minimum. Will follow up with her hematology [facility], Lola Doe next week. (2) Chest heaviness: Inferior TWI new since prior EKG on November 11. Troponin negative in ER. - Unchanged EKG on 12/01. Improved symptoms and also now with PE which could explain chest symptoms. -> Low concern for ACS. (3) Anemia: Baseline hgb ~13. After her hysterectomy, she dropped to 7.7 and required 2 units of PRBCs. - Hgb was 9.5, then 10.0 on discharge. Evaluated by her surgeon, Dr. Castillo who feels ongoing bleeding is unlikely. - Got one dose of IV iron prior to discharge. (4) Abdominal wall hematoma: Due to hysterectomy. Improving on CT today from prior. Likely cause of elevated bilirubin. - blue split trimmer following (5) Pelvic pain in female: No dysuria to suggest UTI. Likely due to recent operation. - Continue her outpatient acetaminophen & [place] with ondansetron for nausea. - Hold ibuprofen for starting anticoagulation (6) S/P hysterectomy with oophorectomy: As above (7) Glaucoma: - Continue latanoprost QPM (8) DVT prophylaxis: SCDs Total Time Total Time Spent Total Time Spent (In Minutes): 35 Total Time Includes: Examination of the Patient Discharge Plan Discharge Items Patient Disposition: Home - Self-Care Reason For Visit: Shortness of breath Discharge Diagnosis: Pulmonary embolism (blood clot in the lung) Activity: Resume your previous activity Non-emergency contact: Oncologist Call non-emergency contact if: your symptoms worsen and your temperature is above 101 Follow-up/Referrals: Ara Barbour [Primary Care Provider] - Lola An CRNP [Nurse Practitioner] - (Please see Lola at your December 16 visit, or if that was cancelled, please make an appointment for 1-2 weeks from today.) Diet: Regular Addtl Attending Provider Instructions: Ms. Jordan, You were admitted for shortness of breath after your gynecologic surgery (hysterectomy). We found a blood clot in your left lung. This can sometimes happen after surgery. After a clot like this, the usual care is to be on a blood thinner for 3 months at a minimum. We started you on Eliquis which is a 2 time a day medication. We will work with you on getting the pills and making sure they are affordable. Your blood counts were stable in the hospital (though still low), so we gave you some IV iron to help your body build more red blood cells. Dr. Castillo saw you in the hospital as well and felt your surgical site was doing well. Please see Ms. An in her office in the next 1-2 weeks to make sure your anemia is improving and that you are doing well with the blood thinner. Pending Studies at Discharge: No Stand-Alone Forms: My Re[employer]er, Smoking Cessation Medications and DC Order Prescriptions: New apixaban 5 mg (74 tabs) tablets,dose pack See Rx Instructions .ROUTE .COMPLEX Qty: 74 RF: 0 Continued ondansetron HCl [Zofran] 4 mg tablet 4 mg PO Q6H PRN (Reason: nausea and vomiting) Qty: 20 RF: 1 azelastine 137 mcg (0.1 %) aerosol,spray 2 sprays INTNAS QAM PRN (Reason: Nasal Congestion) RF: 0 latanoprost 0.005 % drops 1 drops OP QPM RF: 0 multivitamin Tablet 1 tab PO QAM RF: 0 hydrocodone-acetaminophen [[place]] 5-325 mg tablet 1 tab PO Q6H PRN (Reason: pain) Qty: 20 RF: 0 Discontinued ibuprofen 600 mg tablet 600 mg PO Q6H PRN (Reason: pain) Qty: 30 RF: 2 Discharge Orders: Discharge Order (Routine); Ordered 12/03/19 Ordered By: Hiren Ash/Other Patient Handouts: Embolism Pulmonary, Embolism Pulmonary Dc, Apixaban oral tablets Admission Data Admit Date/Time: 12/01/19 18:53 Attending Provider: Hiren Le Admit Provider: Christ Arevalo Primary Care Provider: Ara Barbour Other Providers: Hiren Le ; Christ Arevalo ; Chantal Castillo Other Interventions: Discharge Summary Assessment (RN) Last Done: 12/03/19 11:31 DC Date/Time DO NOT enter until pt leaves facility: 12/03/19 13:15 Coding Level of Care Code 21604 OBS Care - Discharge Diagnoses Pulmonary embolism I26.99 Chest heaviness R07.89 Anemia D50.8 Anemia type: iron deficiency Iron deficiency anemia type: other iron deficiency Abdominal wall hematoma S30.1XXD Encounter type: subsequent encounter Pelvic pain in female R10.2 S/P hysterectomy with oophorectomy Z90.710; Z90.721 Glaucoma H40.9 Glaucoma type: unspecified Laterality: bilateral DVT prophylaxis Z29.9
== END 2019-12-03 13:15 | disposition home or self-care (01) ==
LOC: 2W 15:09 → ED 15:09 → SUATTDRO 18:53 → 2W 19:30